=== PATIENT | female | born 1935 | race Caucasian/White ===

== ENCOUNTER → 2017-07-12 | Day surgery (SDC) | payer OTHER ==
--- NOTE | 2017-07-12 11:04 | RAD REPORT ---
EXAM DESCRIPTION: US - Breast Core BX w/US Guidance - 07/12/2017 10:39 am CLINICAL HISTORY: N63.0 COMPARISON: Mammogram and ultrasound studies July 09 TECHNIQUE: Patient presents for ultrasound-guided core biopsy of previously detailed 12 o'clock righ t breast mass. Patient had no contraindicated allergy or medication history. The procedure, risks and alternatives were discussed with the patient in detail. After answering all questions both oral and written consent were obtained. Time out procedure was performed. Preliminary imaging again identified large lobulated mass in the 12 o'clock right breast. The skin wa s prepped and draped in the usual sterile fashion. From a medial inferior approach the skin and deepe r tissues were anesthetized with 1% lidocaine. A 14 gauge vacuum assisted biopsy needle was advanced under direct sonographic guidance. Tip was placed at the medial inferior margin of the mass and a 2 c entimeter core biopsy was obtained. A second 2 centimeter core biopsy was obtained using the same acc ess site in a different area within the mass. All obtained material was given to pathology for histol ogy/cytology evaluation. Under direct sonographic guidance a localization clip was deployed along the medial inferior margin o f the mass. Patient tolerated the procedure well without complications. Hemostasis was obtained at the puncture s ite. No hematoma within the breast. A sterile bandage was placed to the puncture site and post proced ure care and precaution instructions were given to the patient. IMPRESSION: Successful ultrasound-guided biopsy of previously detailed right breast mass.
== END ==
LOC: DS 09:20
PROVIDERS: ATTEND Physician Assistant
DX: C50.911 Malignant neoplasm of unspecified site of right female breast (principal); Z17.1 Estrogen receptor negative status [ER-]
CPT/HCPCS: 19083; 88305

== ENCOUNTER 2017-07-29 05:45 | Day surgery (SDC) | payer OTHER ==
--- NOTE | 2017-07-27 14:11 | RAD REPORT ---
EXAM DESCRIPTION: RAD - Chest Pa And Lat (2 Views) - 07/27/2017 1:49 pm CLINICAL HISTORY: Breast mass COMPARISON: None. FINDINGS: Calcified granuloma is present in the right lower lobe anteriorly with calcified right per itracheal lymph nodes seen. The combination of findings likely represents previous granulomatous infe ction. The lungs are grossly clear. The heart is normal in size.
[2017-07-27 14:37] LABS: Absolute Lymphocytes (CBC) 2.6 K/uL (0.7-4.9); Absolute Monocytes 0.6 K/uL (0.1-1.3); Absolute Neutrophil 6.6 K/uL (1.8-8.0); Eosinophils % 3.1 % (0-4.4); Hematocrit 38.8 % (36.0-45.0); Lymphocytes % 25.6 % (15.3-44.8); MCH 27.5 pg (27.0-35.0); MPV 8.7 fL (7.6-11.3); Monocytes % 5.5 % (3.3-12.3); RBC Red Blood Cell Count 4.56 M/uL (3.86-4.86)
[2017-07-27 15:03] LABS: Potassium 4.3 mEq/L (3.6-5.0)
--- NOTE | 2017-07-27 15:26 | EKG ---
Test Date: 2017-07-27 Test Time: 13:22:20 Global Account Executive: NICHOLAS MEASUREMENT RESULTS: Intervals: Rate: 71 RI: 166 QRSD: 84 QT: 394 QTc: 428 Banner: P: -12 RI: 166 QRS: -6 T: 1 INTERPRETIVE STATEMENTS: Normal sinus rhythm Normal ECG Compared to ECG 10/27/2002 09:20:00 No significant changes Electronically Signed On 07-27-17 15:25:27 CDT by Sudeep Brody
[2017-07-27 15:44] LABS: ALT/SGPT 31 IU/L (10-60); AST/SGOT 51 IU/L (10-42); Albumin 4.6 g/dL (3.2-5.5); Alkaline Phosphatase 75 IU/L (42-121); BUN Blood Urea Nitrogen 21 mg/dL (6-20); Bilirubin Direct < 0.1 mg/dL (0-0.2); Bilirubin Total 0.5 mg/dL (0.3-1.2); Protein, Total 7.5 g/dL (6.0-8.3)
[2017-07-29] MEDS ORDERED: NA CHLORIDE 0.9% 1,000 ML ONE (06:10)
[2017-07-29] MEDS ORDERED: CEFAZOLIN/SWI 1gm 0 GM/0 ML SYR ONE (06:10)
[2017-07-29] MEDS ORDERED: BUPIVACA 0.25%/EPI 0.0005%/PF 30 ML VIAL ONE (08:04)
[2017-07-29] MEDS ORDERED: METHYLENE BLUE 0.5% 10 ML AMP ONE (08:04)
[2017-07-29] MEDS ORDERED: VANCOMYCIN/NS 1 gm 1 GM/250 ML BAG ONE (08:17)
[2017-07-29] MEDS ORDERED: PROPOFOL 200 MG/20 ML VIAL IV ONE (08:28)
[2017-07-29] MEDS ORDERED: MIDAZOLAM HCL 2 MG/2 ML INJ ONE (08:28)
[2017-07-29] MEDS ORDERED: LIDOCAINE 2% MPF 5 ML VIAL ONE (08:28)
[2017-07-29] MEDS ORDERED: FENTANYL CITR 250 MCG/5 ML ONE (08:28)
[2017-07-29] MEDS ORDERED: ROCURONIUM 50 MG/5 ML VIAL IV ONE (08:28)
[2017-07-29] MEDS ORDERED: SCOPOLAMINE HYDROBROMIDE PATCH TD ONE (08:32)
--- NOTE | 2017-07-29 09:03 | P.PN ---
Date of Service: 07/29/17 Patient had radioactive tracer injected over 1 hour ago and has no movement at all of tracer when imaged. Tried massage, no movement - will cancel case for today and reschedule for wednesday with peritumoral injection - i have discussed with patient whom agrees with the above plan
== END 2017-07-29 09:25 | disposition home or self-care (01) ==
LOC: OR 05:45
PROVIDERS: ATTEND Surgery
DX: C50.911 Malignant neoplasm of unspecified site of right female breast (principal); Z53.9 Procedure and treatment not carried out, unspecified reason
CPT/HCPCS: 36415; 71046; 80051; 80076; 82565; 82962; 84520; 85025; 93005; J3370; J7030; J0690; J2250

== ENCOUNTER 2017-08-02 06:44 | Day surgery (SDC) | payer OTHER ==
[2017-08-02] MEDS ORDERED: VANCOMYCIN/NS 1 gm 1 GM/250 ML BAG ONE (07:22)
[2017-08-02] MEDS ORDERED: NA CHLORIDE 0.9% 1,000 ML ONE (07:22)
[2017-08-02] MEDS ORDERED: PROPOFOL 200 MG/20 ML VIAL IV ONE (07:57)
[2017-08-02] MEDS ORDERED: LIDOCAINE 2% MPF 5 ML VIAL ONE (07:57)
[2017-08-02] MEDS ORDERED: MIDAZOLAM HCL 2 MG/2 ML INJ ONE (07:57)
[2017-08-02] MEDS ORDERED: FENTANYL CITR 100 MCG/2 ML ONE (07:58)
[2017-08-02] MEDS ORDERED: ROCURONIUM 50 MG/5 ML VIAL IV ONE (07:58)
[2017-08-02] MEDS ORDERED: SCOPOLAMINE HYDROBROMIDE PATCH TD ONE (08:36)
[2017-08-02] MEDS ORDERED: METHYLENE BLUE 0.5% 10 ML AMP ONE (08:38)
[2017-08-02] MEDS ORDERED: BUPIVACA 0.25%/EPI 0.0005%/PF 30 ML VIAL ONE (08:38)
--- NOTE | 2017-08-04 14:04 | P.OP ---
Preoperative diagnosis: Right Breast Cancer Postoperative diagnosis: Right Breast Cancer Primary procedure: Right Mastectomy with [place] Lymph Node Biopsy, Left simple mastectomy Anesthesia: GETA Estimated blood loss: <30cc Specimen: Right, Left Breast, Right [place] Lymph Node Findings: single sentinel lymph node Complications: None Drain(s): FLOWER drain (10 georgian round) Transferred to: Recovery Room Condition: Good
== END 2017-08-02 09:45 | disposition home or self-care (01) ==
LOC: OR 06:44
PROVIDERS: ATTEND Surgery
DX: C50.911 Malignant neoplasm of unspecified site of right female breast (principal); Z53.8 Procedure and treatment not carried out for other reasons
CPT/HCPCS: 82962; J3370; J7030; J2250; J3010

== ENCOUNTER 2017-08-04 06:42 | Day surgery (SDC) | payer OTHER ==
[2017-08-04] MEDS ORDERED: NA CHLORIDE 0.9% 1,000 ML ONE ×2 (07:31→12:58)
[2017-08-04] MEDS ORDERED: VANCOMYCIN 1 GM/250 ML BAG ONE (07:37)
[2017-08-04] MEDS ORDERED: SCOPOLAMINE HYDROBROMIDE PATCH TD ONE (07:48)
[2017-08-04] MEDS ORDERED: ROCURONIUM 50 MG/5 ML VIAL IV ONE (09:45)
[2017-08-04] MEDS ORDERED: FENTANYL CITR 250 MCG/5 ML ONE ×2 (09:45→12:43)
[2017-08-04] MEDS ORDERED: PROPOFOL 200 MG/20 ML VIAL IV ONE (09:45)
[2017-08-04] MEDS ORDERED: MIDAZOLAM HCL 2 MG/2 ML INJ ONE (09:45)
[2017-08-04] MEDS ORDERED: LIDOCAINE 1% MPF 2 ML AMPULE ONE (09:47)
--- NOTE | 2017-08-04 09:54 | RAD REPORT ---
EXAM DESCRIPTION: NM - Lymphoscintigraphy - 08/04/2017 9:34 am CLINICAL HISTORY: Right breast carcinoma. COMPARISON: None. FINDINGS: 0.1 millicuries technetium sulfur colloid was formulated in the each of 4 separate syringe s. Four intradermal injections were performed surrounding the area of mass lesion in the upper outer rig ht breast. IMPRESSION: Right breast lymphoscintigraphy injection as detailed.
[2017-08-04] MEDS ORDERED: BUPIVACAINE 0.5% Inj,MDV 50 mL VIAL ONE (10:08)
[2017-08-04] MEDS ORDERED: BUPIVACA 0.25%/EPI 0.0005%/PF 30 ML VIAL ONE (10:17)
[2017-08-04] MEDS ORDERED: ONDANSETRON HCL 40 MG/20 ML VIAL ONE (10:29)
[2017-08-04] MEDS: METHYLENE BLUE 0.5% 10 ML AMP ONE ×2 (10:52→11:11)
[2017-08-04] MEDS ORDERED: GLYCOPYRROLATE 0.2 MG/ML SYR ONE (12:52)
[2017-08-04] MEDS ORDERED: Ringers Lactate 1,000 ML IV ONE (13:17)
[2017-08-04] MEDS ORDERED: KETOROLAC 30 MG/ML INJ ONE (13:46)
[2017-08-04] MEDS ORDERED: PROMETHAZINE 25 MG/ML VIAL ONE (14:31)
--- NOTE | 2017-08-05 00:21 | OP ---
Date of Procedure: 08/04/2017 Surgeon: Farzad Murray MD, Preoperative Diagnosis: Right breast cancer. Postoperative Diagnosis: Right breast cancer. Procedure Performed: 1.Right mastectomy with sentinel lymph node biopsy. 2.Left simple mastectomy. Anesthesia: General endotracheal. Estimated Blood Loss: Less than 30 cc. Specimen: Right and left breast right sentinel lymph node. Findings: Single sentinel lymph node. The remainder of the background radiation was below 10%. Complication: None. Drains: [place] round FLOWER drain used bilaterally in the breast pockets. Disposition: Transferred to recovery room in good condition. Procedure In Detail: After informed consent was obtained, the patient was brought to the operating r oom and prepped and draped in the usual sterile fashion. After adequate anesthesia was achieved, I i njected methylene blue of approximately 7 cc in the peritumoral position of the right breast. This a alfonso was then massaged for approximately 5 minutes by staff to allow for drainage through the lymphati c system. After this was done, I used the [place] counter to detect the area of the axilla with the h ighest counts and marked this area. I then marked the breast at the inframammary crease clavicle mid line. I marked the axilla with respect to the latissimus dorsi and pectoralis major distributions as well. After this was done, I created a periareolar elliptical type incision of the right breast inc luding an additional margin on the superior aspect under the tumor to include the skin overlying the known infiltrating ductal carcinoma of the right breast. After this was taken down with a 15-blade d own to the subcutaneous tissues, I elevated skin flaps and entered the pectoral plane following the w sindhu line circumferentially to the clavicle superiorly, medially to the sternum, inferiorly to the in framammary crease, laterally to the inferior aspect of the latissimus dorsi. I then circumferentiall y dissected this all the way to the prepectoral fascia and removed it off the pectoralis major muscle . After this was removed, small aspect of the axillary tail was included and the orientation stitch was then placed short superior, long lateral, and the specimen was sent for pathologic examination fo r permanent analysis. I then used the [place] counter and checked the background radiation of the mary ast area and found that I had an isolated area of the right axilla. An axillary incision was then ma de after packing the chest with wet saline. I then continued in the axilla to dissect bluntly into t he axillary content space and found a single enlarged blue lymph node which had a hot counts of appro ximately almost 500. This was circumferentially dissected and medium clips were placed on the residu al lymphatic channel and this was ligated and sent off for pathologic examination. Counts ex vivo we re in the 500 range, in vivo were approximately in the 350-400 range. This was sent off for patholog ic examination. Touch prep analysis and pathologic examination determined that the lymph node was gr ossly normal at this time. I then irrigated the chest incision and the axillary incision copiously a nd dried the area out. Hemostasis of the chest was already achieved without any additional hemostati c maneuvers. I then placed a 10-[place] round FLOWER drain in the right mammary space and brought it out through a separate stab incision and secured this to the chest using a 2-0 nylon suture. I then proc eeded to close the mammary incision with the dermis down with an interrupted 3-0 Vicryl with good cordell roximation of tissues. The same was treated with the axillary incision with 3-0 Vicryl in interrupte d fashion. The skin was then closed with a 4-0 Monocryl in running fashion in both the mammary incis ion and the axilla. Dermabond was placed over the top. I then turned my attention after changing gl oves and instruments to the left breast. An elliptical periareolar incision was made at this time wi th 15 bands down to the subcutaneous tissues. Once again, skin flaps were elevated following the whi te line all the way to the prepectoral fascia, superior to the clavicle, medially to the sternum, and inferior to the 6th rib space at the inframammary crease. Laterally, it carried to the latissimus d orsi in the inferior aspect. I then continued the dissection out to include the axillary tail and th e breast was removed off the prepectoral fascia. Marking stitches were placed once again short super ior, long lateral, and the specimen was sent off for pathologic examination. Hemostasis was achieved with electrocautery. The chest cavity was then irrigated copiously and dried. No additional hemost atic maneuvers required. A 10-[place] round FLOWER drain was then placed once again in this through a sep arate stab incision on the lateral aspect of the incision and secured to the chest wall using a 2-0 s ilk stitch at this time. The subcutaneous layers were then closed with 3-0 Vicryl in interrupted fas hion and skin was closed with 4-0 Monocryl in a running fashion. Dermabond was placed over the top. The patient tolerated the procedure well without evidence of complication. Sterile dressings were p laced over the top and compression dressings were placed on the patient on the mammary and axillary a spect and an Bulmaro bandage was used to wrap circumferentially. The patient tolerated the procedure wel l without evidence of complication and transferred to the PACU in good condition. All counts were co rrect at the end of the case. BARBARA/CRISTO Voice ID: [id number] Report ID: [id number]
== END 2017-08-04 16:50 | disposition home or self-care (01) ==
LOC: OR 06:42
PROVIDERS: ATTEND Surgery
PROC: 0HTV0ZZ Resection of Bilateral Breast, Open Approach (ICD-10-PCS; principal; 2017-08-04 09:30)
PROC: 07B50ZX Excision of Right Axillary Lymphatic, Open Approach, Diagnostic (ICD-10-PCS; 2017-08-04 09:30)
DX: C50.911 Malignant neoplasm of unspecified site of right female breast (principal); E11.9 Type 2 diabetes mellitus without complications; I10 Essential (primary) hypertension; K21.9 Gastro-esophageal reflux disease without esophagitis; M19.90 Unspecified osteoarthritis, unspecified site; Z88.0 Allergy status to penicillin; Z88.2 Allergy status to sulfonamides; Z88.6 Allergy status to analgesic agent
CPT/HCPCS: 19303; 38500; 38900; 78195; 82962 ×2; 88307; A9541; J2001; J2250; J2405; J2550; J3370; J7030; 88305

== ENCOUNTER 2021-02-26 08:00 | Day surgery (SDC) | payer OTHER ==
[2021-02-26] MEDS ORDERED: NA CHLORIDE 0.9% 1,000 ML ONE (08:10)
[2021-02-26 08:37] LABS: MPV 7.6 fL (7.6-11.3)
[2021-02-26 08:43] LABS: Protime INR 1.02
[2021-02-26] MEDS ORDERED: MIDAZOLAM HCL 2 MG/2 ML INJ ONE (08:53)
[2021-02-26] MEDS ORDERED: FENTANYL CITR 100 MCG/2 ML ONE ×2 (08:54→08:55)
[2021-02-26] MEDS ORDERED: NALOXONE 0.4 MG/ML VIAL ONE (08:54)
[2021-02-26 10:14] VITALS: BMI 29.2
[2021-02-26 10:25] VITALS: BP 165/70; TEMP 98.3; O2SAT 96
--- NOTE | 2021-02-26 13:30 | RAD REPORT ---
EXAM DESCRIPTION: US - Breast Core BX w/US Guidance - 02/26/2021 9:59 am CLINICAL HISTORY: ICD R 92.8 COMPARISON: July 31, 2020 ultrasound TECHNIQUE: The risks, benefits alternatives to the procedure were explained to the patient and infor med consent obtained. Skin and subcutaneous tissues anesthetized with lidocaine. Under sonographic guidance, 4 x 18 gauge core specimens were obtained of the right-sided chest wall m ass identified on the recent chest CT. Tissue given to pathology. Note that nursing was present two provided conscious sedation. Versed and Fentanyl were administered. Patient experienced no immediate complication IMPRESSION: Technically successful ultrasound-guided core biopsy of a right chest wall mass. No imme diate complications. Conscious sedation was utilized .
== END 2021-02-26 10:03 | disposition home or self-care (01) ==
LOC: DS 08:00
PROVIDERS: ATTEND Internal Medicine Medical Oncology
DX: C50.911 Malignant neoplasm of unspecified site of right female breast (principal); C77.3 Secondary and unspecified malignant neoplasm of axilla and upper limb lymph nodes
CPT/HCPCS: 19083; 36415; 85049; 85610; 85730; 88305; J2250; J2310; J3010; J7030

== ENCOUNTER 2021-08-22 15:33 | Emergency (ER) | payer OTHER ==
--- OUTSIDE RECORDS SUMMARY | 2021-08-22 15:37 | XMS REPORT | Continuity of Care Document ---
:1935 Author Organization [facility] t Address [address] [place] [address] Care Team Providers Name Role Phone System, Not In Primary Care Physician JONNA Attending Clinician Unavailable Nathalie Lindsey MD Attending Clinician Emma Castillo MD Attending Clinician KWADWO Attending Clinician Unavailable EMMA CASTILLO Attending Clinician Unavailable EMMA CASTILLO Attending Clinician Unavailable MARIANELA MCKINNEY Attending Clinician Unavailable Kwadwo PASTOR Attending Clinician EMMA CASTILLO Admitting Clinician Unavailable Payers Payer Name Policy Type Policy Number Effective Date Expiration Date S marsiace MEDICARE A B [id number] 2002 00:00:00 [employer] INDEMNITY [id number] 2013 NON CONTR 00:00:00 MEDICARE PART A [id number] \\T\\ B - MEDICARE INDEMNITY/TRADITIO [id number] NAL CHOICE - [employer] Problems Condition Condition Condition Status Onset Resolution Last Treating Co mments Source Name Details Category Date Date Treatment Clinician Date 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 cancer cancer College (HCCode) (HCCode) of Medicin e Allergies, Adverse Reactions, Alerts Allergy Allergy Status Severity Reaction(s) Onset Inactive Treating Comm ents Source Name Type Date Date Clinician Milk-Rel Propensi Active Diarrhea Diarrhea; [facility] ated ty to 2- Stomach College Compound adverse 00:00: ache of s reaction 00 Medicin s to e drug MILK Allergy Active Med Di[facility] PRODUCTS 00 Center CODEINE Allergy Active Med 2021- [facility] SULFA Allergy Active Med Itching [facility] (SULFONA [facility] 00:[facility] Medical ANTIBIOT 00 Center ICS) PENICILL Allergy Active [facility] Codeine Propensi Active Rash [facility] ty to 1-12 [place] adverse 00:00: of reaction 00 Medicin s to e drug Penicill Propensi Active RESP [facility] ins ty to 12 [place] adverse 00:00: of reaction 00 Medicin s to e drug Sulfa Propensi Active GI [facility] Antibiot ty to 12 [place] ics adverse 00:00: of reaction 00 Medicin s to e drug PENICILL Allergy Active High Hives [facility] SULFA Allergy Active High Itching [facility]SULFONA [facility] Medical ANTIBIOT 00 Center ICS) CODEINE Allergy Active High Hives [facility] Social History Social Habit Start Date Stop Date Quantity Comments Source History [facility] Alcohol Std Drinks of Med icine History [facility] Alcohol Binge of Medicine History [facility] Alcohol Comment of Medici ne Alcohol intake 2021-06-09 2021-06-[address] [facility] Col lege 00:00:00 00:00:00 non-drinker of Medicine (finding) Exposure to 2021-04-20 2021-05-20 Not sure [facility] e SARS-CoV-2 (event) 00:00:00 15:43:00 of Med icine History [facility] 2021-03-26 2021-03-[address] [facility] ge Alcohol Frequency 00:00:00 00:00:00 of Medi cine Tobacco use and 2021-03-26 2021-03-26 Smokeless tobacco [facility] exposure 00:00:00 00:00:00 non-user of Medicine Sex Assigned At [address] [facility] 00:00:00 00:00:00 of Medicine Smoking Status Start Date Stop Date Source Never smoked tobacco [facility] Teresa ege of Medicine Medications Ordered Filled Start Stop Current Ordering Indication Dosage Frequency Signature Comments Components Source Medication Medication Date Date Medication? Clinician (SIG) Name Name esomeprazol Yes 20mg Take [address] [facility] e (NEXIUM) 05-21 by mouth Colle ge 20 MG 14:41: daily. of capsule 43 Medicin e metoprolol Yes 25mg Take 25 mg [facility] (TOPROL-XL) - by mouth Teresa ege 25 MG XL 14:41: two times of tablet 43 daily. Medicin e Azelastine Yes 1{spray [address] [facility] HCl 137 05-21 } [facility] MCG/SPRAY 14:41: Nostrils of SOLN 43 route two Medicin times e daily. fenofibrate Yes 145mg Take 145 [facility] (TRICOR) 05-21 mg by [place] 145 MG 14:41: mouth of tablet 43 daily. Medicin e LOSARTAN Yes 25mg Take 25 mg [facility] P[facility]ASSIUM 05-[facility] 14:41: daily. of 43 Medicin e Multiple Yes Take by Henrysudhir r Vitamins-Mi 05-21 mouth [place] nerals 14:41: daily. of (WOMENS 43 Medicin MULTI e VITAMIN & MINERAL OR) FLUTICASONE Yes 1{spray [address] [facility] PROPIONATE 05-21 } [facility] NA 14:41: Nostrils of 43 route 2 Medicin times e daily as needed. Ferrous Yes 65mg Take 65 mg [facility] Sulfate 05-21 by [facility] (IRON OR) 14:41: daily. of 43 Medicin e Cholecalcif Yes Take by Josias suarez abigail 05-21 mouth [place] (VITAMIN 14:41: daily. of D3) 125 MCG 43 Medicin (5000 UT) e CAPS esomeprazol Yes 20mg Take [address] [facility] e (NEXIUM) - by mouth Colle ge 20 MG 14:41: daily. of capsule 43 Medicin e metoprolol Yes 25mg Take 25 mg [facility] (TOPROL-XL) 3-09 by mouth Teresa ege 25 MG XL 14:41: two times of tablet 43 daily. Medicin e Azelastine Yes 1{spray [address] [facility] HCl 137 05-21 } [facility] MCG/SPRAY 14:41: Nostrils of SOLN 43 route two Medicin times e daily. fenofibrate Yes 145mg Take 145 [facility] (TRICOR) 3-09 mg by [place] 145 MG 14:41: mouth of tablet 43 daily. Medicin e LOSARTAN Yes 25mg Take 25 mg [facility] POTASSIUM 05-21 by mouth Colleg e OR 14:41: daily. of 43 Medicin e Multiple Yes Take by Henrysudhir r Vitamins-Mi 05-21 mouth [place] nerals 14:41: daily. of (WOMENS 43 Medicin MULTI e VITAMIN & MINERAL OR) FLUTICASONE Yes 1{spray [address] [facility] PROPIONATE 05-21 } [facility] NA 14:41: Nostrils of 43 route 2 Medicin times e daily as needed. Ferrous Yes 65mg Take 65 mg [facility] Sulfate 05-21 by mouth [place] (IRON OR) 14:41: daily. of 43 Medicin e Cholecalcif Yes Take by Josias suarez abigail 05-21 mouth [place] (VITAMIN 14:41: daily. of D3) 125 MCG 43 Medicin (5000 UT) e CAPS esomeprazol Yes 20mg Take [address] [facility] e (NEXIUM) 05-21 by mouth Colle ge 20 MG 14:41: daily. of capsule 43 Medicin e metoprolol Yes 25mg Take 25 mg [facility] (TOPROL-XL) -09 by mouth Teresa ege 25 MG XL 14:41: two times of tablet 43 daily. Medicin e Azelastine Yes 1{spray [address] [facility] HCl 137 05-21 } [facility] MCG/SPRAY 14:41: Nostrils of SOLN 43 route two Medicin times e daily. fenofibrate Yes 145mg Take 145 [facility] (TRICOR) 3-09 mg by [place] 145 MG 14:41: mouth of tablet 43 daily. Medicin e LOSARTAN Yes 25mg Take 25 mg [facility] POTASSIUM -09 by mouth Colleg e OR 14:41: daily. of 43 Medicin e Multiple Yes Take by Henrylo r Vitamins-Mi 3- mouth [place] nerals 14:41: daily. of (WOMENS 43 Medicin MULTI e VITAMIN & MINERAL OR) FLUTICASONE Yes 1{spray [address] [facility] PROPIONATE 05-21 } [facility] NA 14:41: Nostrils of 43 route 2 Medicin times e daily as needed. Ferrous Yes 65mg Take 65 mg [facility] Sulfate 05-21 by mouth [place] (IRON OR) 14:41: daily. of 43 Medicin e Cholecalcif Yes Take by Ba daniela abigail 05-21 mouth [place] (VITAMIN 14:41: daily. of D3) 125 MCG 43 Medicin (5000 UT) e CAPS esomeprazol Yes 20mg Take [address] [facility] e (NEXIUM) 05-21 by mouth Colle ge 20 MG 14:41: daily. of capsule 43 Medicin e metoprolol Yes 25mg Take 25 mg [facility] (TOPROL-XL) 309 by mouth Teresa ege 25 MG XL 14:41: two times of tablet 43 daily. Medicin e Azelastine Yes 1{spray [address] [facility] HCl 137 05-21 } [facility] MCG/SPRAY 14:41: Nostrils of SOLN 43 route two Medicin times e daily. fenofibrate Yes 145mg Take 145 [facility] (TRICOR) -09 mg by [place] 145 MG 14:41: mouth of tablet 43 daily. Medicin e LOSARTAN Yes 25mg Take 25 mg [facility] POTASSIUM 05-21 by mouth Colleg e OR 14:41: daily. of 43 Medicin e Multiple Yes Take by Henrylo r Vitamins-Mi 3- mouth [place] nerals 14:41: daily. of (WOMENS 43 Medicin MULTI e VITAMIN & MINERAL OR) FLUTICASONE Yes 1{spray [address] [facility] PROPIONATE 3 } [facility] NA 14:41: Nostrils of 43 route 2 Medicin times e daily as needed. Ferrous Yes 65mg Take 65 mg [facility] Sulfate 05-21 by [facility] (IRON OR) 14:41: daily. of 43 Medicin e Cholecalcif Yes Take by Josias hayes 05-21 [facility] (VITAMIN 14:41: daily. of D3) 125 MCG 43 Medicin (5000 UT) e CAPS Multiple 2021- No 1{tbl} Take 1 [facility] Vitamin 05-21 Tablet by Colleg e (MULTI-JOSE 12:14: 00:00 mouth of MIN) TABS 30 :00 daily. Medicin e Multiple 2021- No 1{tbl} Take 1 [facility] Vitamin 05-21 Tablet by Colleg e (MULTI-JOSE 12:14: 00:00 mouth of MIN) TABS 30 :00 daily. Medicin e Ferrous 2021- No Take by [facility] r Sulfate 05-21 [facility] Dried (HIGH 12:12: 00:00 daily. of POTENCY 53 :00 Medicin IRON) 65 MG e TABS Ferrous 2021- No Take by Henrylo r Sulfate 05-21 [facility] Dried (HIGH 12:12: 00:00 daily. of POTENCY 53 :00 Medicin IRON) 65 MG e TABS ferrous 2021- No 325mg Take 325 [facility] sulfate 325 05-21- mg by Colleg e (65 Fe) MG 12:12: 00:00 mouth. of tablet 50 :00 Medicin e ferrous 2021- No 325mg Take 325 [facility] sulfate 325 05-21-09 mg by Colleg e (65 Fe) MG 12:12: 00:00 mouth. of tablet 50 :00 Medicin e acetaminoph 2021- No 500mg Take 500 [facility] en 2-27 03-10 mg by [place] (TYLENOL) 00:00: 05:59 mouth of 500 mg 00 :00 every 6 Medicin tablet hours as e needed for Pain. acetaminoph 2021- No 500mg Take [address] [facility] en 2-27 03-10 mg by [place] (TYLENOL) 00:00: 05:59 mouth of 500 mg 00 :00 every 6 Medicin tablet hours as e needed for Pain. acetaminoph 2021- No 500mg Take 500 [facility] en 2-27 03-10 mg by College (TYLENOL) 00:00: 05:59 mouth of 500 mg 00 :00 every 6 Medicin tablet hours as e needed for Pain. acetaminoph 2021- No 500mg Take 500 [facility] en 2-27 03-10 mg by College (TYLENOL) 00:00: 05:59 mouth of 500 mg 00 :00 every 6 Medicin tablet hours as e needed for Pain. losartan 2021- No TAKE 1 [facility] (COZAAR) 25 2-16 03-04 TABLET BY Co llege MG tablet 00:00: 00:00 MOUTH of 00 :00 EVERY DAY Medicin FOR 90 e DAYS Azelastine [address] [facility] HCl 137 1-12 College MCG/SPRAY 14:55: of SOLN 48 Medicin e fenofibrate Yes 145mg Take 145 [facility] (TRICOR) 1-12 mg by College 145 MG 14:55: mouth of tablet 48 daily. Medicin e Ferrous 0 Yes [facility] Sulfate 1-12 [facility] Dried (HIGH 14:55: of POTENCY 48 Medicin IRON) 65 MG e TABS LOSARTAN 0 Yes 25mg Take 25 mg [facility] POTASSIUM 1-12 by mouth Colleg e OR 14:55: daily. of 48 Medicin e Multiple Yes [facility] Vitamins-Mi 1-12 [place] nerals 14:55: of (WOMENS 48 Medicin MULTI e VITAMIN & MINERAL OR) Azelastine [address] [facility] HCl 137 1-12 College MCG/SPRAY 14:55: of SOLN 48 Medicin e fenofibrate Yes 145mg Take 145 [facility] (TRICOR) 1-12 mg by College 145 MG 14:55: mouth of tablet 48 daily. Medicin e Ferrous [address] [facility] Sulfate 1-12 [facility] Dried (HIGH 14:55: of POTENCY 48 Medicin IRON) 65 MG e TABS LOSARTAN 0 Yes 25mg Take 25 mg [facility] POTASSIUM 1-12 by mouth Colleg e OR 14:55: daily. of 48 Medicin e Multiple 2021-0 Yes [facility] Vitamins-Mi 1-12 College nerals 14:55: of (WOMENS 48 Medicin MULTI e VITAMIN & MINERAL OR) FLUTICASONE 2021-0 Yes by Nasal [facility] PROPIONATE 1-12 route. [place] NA 14:55: of 48 Medicin e Ferrous 0 Yes 65mg Take 65 mg [facility] Sulfate -12 by mouth [place] (IRON OR) 14:55: daily. of 48 Medicin e Cholecalcif 0 Yes Take by Ba ylor abigail 1-12 mouth. [place] (VITAMIN 14:55: of D3) 125 MCG 48 Medicin (5000 UT) e CAPS Azelastine 0 Yes [facility] HCl 137 1-12 [place] MCG/SPRAY 14:55: of SOLN 48 Medicin e fenofibrate Yes 145mg Take 145 [facility] (TRICOR) 1-12 mg by [place] 145 MG 14:55: mouth of tablet 48 daily. Medicin e Ferrous [address] [facility] Sulfate -12 [place] Dried (HIGH 14:55: of POTENCY 48 Medicin IRON) 65 MG e TABS LOSARTAN Yes 25mg Take 25 mg [facility] alexei POTASSIUM -12 [facility] 14:55: daily. of 48 [address] [facility] Vitamins-Mi 1-12 [place] nerals 14:55: of (WOMENS 48 Medicin MULTI e VITAMIN & MINERAL OR) FLUTICASONE 0 Yes by Nasal [facility] PROPIONATE -12 route. [place] NA 14:55: of 48 Medicin e Ferrous 0 Yes 65mg Take 65 mg [facility] Sulfate 12 by mouth [place] (IRON OR) 14:55: daily. of 48 Medicin e Cholecalcif 0 Yes Take by [facility] abigail 1-12 mouth. [place] (VITAMIN 14:55: of D3) 125 MCG 48 Medicin (5000 UT) e CAPS gabapentin 2020-03 Yes 300mg Take 300 [facility] (NEURONTIN) 2-22 mg by [place] 300 MG 00:00: mouth two of capsule 00 times Medicin daily. e metformin 2020-03 Yes 850mg Take 850 [facility] (GLUCOPHAGE 2-22 mg by [place] ) 850 MG 00:00: mouth two of tablet 00 times Medicin daily. e gabapentin 2020-03 Yes 300mg Take 300 [facility] (NEURONTIN) 2-22 mg by [place] 300 MG 00:00: mouth two of capsule 00 times Medicin daily. e metformin 2020-03 Yes 850mg Take 850 [facility] (GLUCOPHAGE 2-22 mg by College ) 850 MG 00:00: mouth two of tablet 00 times Medicin daily. e gabapentin 2020-03 Yes 300mg Take 300 [facility] (NEURONTIN) 2-22 mg by [place] 300 MG 00:00: mouth two of capsule 00 times Medicin daily. e metformin 2020-03 Yes 850mg Take 850 [facility] (GLUCOPHAGE 2-22 mg by College ) 850 MG 00:00: mouth two of tablet 00 times Medicin daily. e gabapentin 2020-03 Yes 300mg Take 300 [facility] (NEURONTIN) 2-22 mg by [place] 300 MG 00:00: mouth two of capsule 00 times Medicin daily. e metformin 2020-03 Yes 850mg Take 850 [facility] (GLUCOPHAGE 2-22 mg by [place] ) 850 MG 00:00: mouth two of tablet 00 times Medicin daily. e gabapentin 2020-03 Yes [facility] (NEURONTIN) 2-22 College 300 MG 00:00: of capsule 00 Medicin e metformin 2020-03 Yes 850mg Take 850 [facility] (GLUCOPHAGE 2-22 mg by [place] ) 850 MG 00:00: mouth of tablet 00 daily. Medicin e gabapentin 2020-[address] [facility] (NEURONTIN) 2-22 College 300 MG 00:00: of capsule 00 Medicin e metformin 2020-03 Yes 850mg Take 850 [facility] a[facility] (GLUCOPHAGE 2-22 mg by [place] ) 850 MG 00:00: mouth of tablet 00 daily. Medicin e metoprolol 2020-[address] [facility] (LOPRESSOR) 2-22 College 25 MG 00:00: of tablet 00 Medicin e gabapentin 2020-[address] [facility] (NEURONTIN) 2-22 College 300 MG 00:00: of capsule 00 Medicin e metformin 2020-03 Yes 850mg Take 850 [facility] (GLUCOPHAGE 2-22 mg by [place] ) 850 MG 00:00: mouth of tablet 00 daily. Medicin e metoprolol 2020-03- No Take by [facility] (LOPRESSOR) 2-22 03-04 mouth two Co llege 25 MG 00:00: 00:00 times of tablet 00 :00 daily. Medicin e glipiZIDE 2020-03 Yes 10mg 10 mg two [facility] (GLUCOTROL) 2-20 times College 10 MG 00:00: daily. of tablet 00 Medicin e glipiZIDE 2020-03 Yes 10mg 10 mg two [facility] (GLUCOTROL) 2-20 times College 10 MG 00:00: daily. of tablet 00 Medicin e glipiZIDE 2020-03 Yes 10mg 10 mg two [facility] (GLUCOTROL) 2-20 times College 10 MG 00:00: daily. of tablet 00 Medicin e glipiZIDE 2020-03 Yes 10mg 10 mg two [facility] (GLUCOTROL) 2-20 times College 10 MG 00:00: daily. of tablet 00 Medicin e glipiZIDE 2020-[address] [facility] (GLUCOTROL) 2-20 College 10 MG 00:00: of tablet 00 Medicin e glipiZIDE 2020-[address] [facility] (GLUCOTROL) 2-20 College 10 MG 00:00: of tablet 00 Medicin e glipiZIDE 2020-[address] [facility] (GLUCOTROL) 2-20 College 10 MG 00:00: of tablet 00 Medicin e levothyroxi 2020-03 Yes Take by Josias calero 2-19 mouth [place] (SYNTHROID) 00:00: daily. of 25 MCG 00 Medicin tablet e rosuvastati 2020-03 Yes Take by Josias gold (CRESTOR) 2-19 mouth [place] 40 MG 00:00: daily. of tablet 00 Medicin e levothyroxi 2020-03 Yes Take by Josias calero 2-19 [facility] (SYNTHROID) 00:00: daily. of 25 MCG 00 Medicin tablet e rosuvastati 2020-03 Yes Take by Josias gold (CRESTOR) 2-19 mouth [place] 40 MG 00:00: daily. of tablet 00 Medicin e levothyroxi 2020-03 Yes Take by Josias calero 2-19 [facility] (SYNTHROID) 00:00: daily. of 25 MCG 00 Medicin tablet e rosuvastati 2020-03 Yes Take by Josias gold (CRESTOR) 2-19 mouth College 40 MG 00:00: daily. of tablet 00 Medicin e levothyroxi 2020-03 Yes Take by Josias calero 2-19 mouth College (SYNTHROID) 00:00: daily. of 25 MCG 00 Medicin tablet e rosuvastati 2020-03 Yes Take by Josias gold (CRESTOR) 2-19 mouth College 40 MG 00:00: daily. of tablet 00 Medicin e levothyroxi 2020-03 Yes [facility] 2-19 College (SYNTHROID) 00:00: of 25 MCG 00 Medicin tablet e rosuvastati 2020-[address] [facility] asif (CRESTOR) 2-19 [place] 40 MG 00:00: of tablet 00 Medicin e levothyroxi 2020-03 Yes [facility] 2-19 College (SYNTHROID) 00:00: of 25 MCG 00 Medicin tablet e rosuvastati 2020-[address] [facility] asif (CRESTOR) 2-19 [place] 40 MG 00:00: of tablet 00 Medicin e losartan 2020-[address] [facility] (COZAAR) 25 2-19 College MG tablet 00:00: of 00 Medicin e levothyroxi 2020-03 Yes [facility] 2-19 [place] (SYNTHROID) 00:00: of 25 MCG 00 Medicin tablet e rosuvastati 2020-[address] [facility] asif (CRESTOR) 2-19 [place] 40 MG 00:00: of tablet 00 Medicin e Vital Signs Vital Name Observation Time Observation Value Comments Source Systolic blood 2021-05-21 20:40:00 176 mm[Hg] [facility] pressure of Medicine Diastolic blood 2021-05-21 20:40:00 73 mm[Hg] [facility] pressure of Medicine Heart rate 2021-05-21 20:40:00 84 /min [facility] Body height 2021-05-21 20:40:00 157.5 cm [facility] Body weight 2021-05-21 20:40:00 72.122 kg [facility] BMI 2021-05-21 20:40:00 29.08 kg/m2 [facility] Systolic blood 2021-05-21 18:58:00 177 mm[Hg] notified [facility] pressure of Medicine Diastolic blood 2021-05-21 18:58:00 70 mm[Hg] notified [facility] pressure of Medicine Heart rate 2021-05-21 18:58:00 80 /min pulse ox 97% [facility] Body temperature 2021-05-21 18:58:00 36.44 [facility] Respiratory rate 2021-05-21 18:58:00 20 /min [facility] Body height 2021-05-21 18:58:[address] [facility] Body weight 2021-05-21 18:58:[address] [facility] BMI 2021-05-21 18:58:00 29.12 kg/m2 [facility] Systolic blood 2021-05-21 17:16:00 167 mm[Hg] [facility] pressure of Medicine Diastolic blood 2021-05-21 17:16:00 77 mm[Hg] [facility] pressure of Medicine Heart rate 2021-05-21 17:16:00 80 /min [facility] ollege of Medicine Body temperature 2021-05-21 17:16:00 36.89 [facility] Body height 2021-05-21 17:16:[address] [facility] Body weight 2021-05-21 17:16:00 72.122 kg [facility] ollege of Medicine BMI 2021-05-21 17:16:00 29.08 kg/m2 [facility] Systolic blood 2021-05-16 14:23:00 179 mm[Hg] [facility] pressure of Medicine Diastolic blood 2021-05-16 14:23:00 72 mm[Hg] [facility] pressure of Medicine Heart rate 2021-05-16 14:23:00 79 /min [facility] Body height 2021-05-16 14:23:[address] [facility] Body weight 2021-05-16 14:23:[address] [facility] BMI 2021-05-16 14:23:00 29.26 kg/m2 [facility] HEIGHT 2021-05-08 08:29:00 157.5 cm WEIGHT 2021-05-08 08:29:00 72.5 kg HEIGHT 2021-05-07 11:51:00 157.5 cm WEIGHT 2021-05-07 11:51:00 72.576 kg HEIGHT 2021-05-08 08:29:00 157.5 cm WEIGHT 2021-05-08 08:29:00 72.5 kg HEIGHT 2021-05-07 11:51:00 157.5 cm WEIGHT 2021-05-07 11:51:00 72.576 kg Systolic blood 2021-03-26 16:52:00 170 mm[Hg] [facility] pressure of Medicine Diastolic blood 2021-03-26 16:52:00 56 mm[Hg] [facility] pressure of Medicine Heart rate 2021-03-26 16:52:00 81 /min [facility] Body temperature 2021-03-26 16:52:00 37.11 [facility] Body height 2021-03-26 16:52:[address] [facility] Body weight 2021-03-26 16:52:[address] [facility] BMI 2021-03-26 16:52:00 29.26 kg/m2 [facility] Body weight 2021-03-26 19:21:[address] [facility] BMI 2021-03-26 19:21:00 29.26 kg/m2 [facility] Systolic blood 2021-03-26 19:21:00 157 mm[Hg] [facility] College pressure of Medicine Diastolic blood 2021-03-26 19:21:00 70 mm[Hg] [facility] pressure of Medicine Body temperature 2021-03-26 19:21:00 37.11 [facility] Body height 2021-03-26 19:21:[address] [facility] Systolic blood 2021-03-26 20:54:00 162 mm[Hg] [facility] College pressure of Medicine Diastolic blood 2021-03-26 20:54:00 79 mm[Hg] [facility] pressure of Medicine Heart rate 2021-03-26 20:54:00 82 /min [facility] Body height 2021-03-26 20:54:00 157.5 cm [facility] Body weight 2021-03-26 20:54:00 72.576 kg [facility] BMI 2021-03-26 20:54:00 29.26 kg/m2 [facility] Procedures This patient has no known procedures. Plan of Care Planned Activity Planned Date Details Comments Source Future Scheduled 2021-06-10 COVID-19 Vaccine (1) [facility] Test 12:09:07 [code = COVID-19 of Medicine Vaccine (1)] Future Scheduled 2021-06-10 TETANUS SHOT (ADULT) [facility] Test 12:09:07 [code = TETANUS SHOT of Medi cine (ADULT)] Future Scheduled 2021-06-10 BMI FOLLOW UP PLAN [facility] r College Test 12:09:07 [code = BMI FOLLOW of Medici ne UP PLAN] Future Scheduled 2021-06-10 ZOSTER VACCINE (1 of [facility] Test 12:09:07 2) [code = ZOSTER of Medicin e VACCINE (1 of 2)] Future Scheduled 2021-06-[address] [facility] Test 12:09:07 (Initial) [code = of Medicin e MEDICARE AWV (Initial)] Future Scheduled 2021-06-[address] [facility] Test 12:09:07 osteoporosis of Medicine (procedure) [code = 967212733] Future Scheduled 2021-06-10 Pneumococcal 65+ (1 [facility] Test 12:09:07 of 1 - PPSV23) [code of Medi cine = Pneumococcal 65+ (1 of 1 - PPSV23)] Future Scheduled 2021-06-10 FLU VACCINE > 6 [facility] C [facility] Test 12:09:07 MONTHS [code = FLU of Medici ne VACCINE > 6 MONTHS] Future Scheduled 2021-06-10 FALL SCREEN [code = [facility] Test 12:09:07 FALL SCREEN] of Medicine Future Scheduled 2021-06-01 COVID-19 Vaccine (1) [facility] Test 16:05:59 [code = COVID-19 of Medicine Vaccine (1)] Future Scheduled 2021-06-01 TETANUS SHOT (ADULT) [facility] Test 16:05:59 [code = TETANUS SHOT of Medi cine (ADULT)] Future Scheduled 2021-06-01 BMI FOLLOW UP PLAN [facility] Test 16:05:59 [code = BMI FOLLOW of Medici ne UP PLAN] Future Scheduled 2021-06-01 ZOSTER VACCINE (1 of [facility] Test 16:05:59 2) [code = ZOSTER of Medicin e VACCINE (1 of 2)] Future Scheduled 2021-06-[address] [facility] Test 16:05:59 (Initial) [code = of Medicin e MEDICARE AWV (Initial)] Future Scheduled 2021-06-01 Screening for [facility] Test 16:05:59 osteoporosis of Medicine (procedure) [code = [id number]] Future Scheduled 2021-06-01 Pneumococcal 65+ (1 [facility] Test 16:05:59 of 1 - PPSV23) [code of Medi cine = Pneumococcal 65+ (1 of 1 - PPSV23)] Future Scheduled 2021-06-01 FLU VACCINE > 6 [facility] C [facility] Test 16:05:59 MONTHS [code = FLU of Medici ne VACCINE > 6 MONTHS] Future Scheduled 2021-06-01 FALL SCREEN [code = [facility] Test 16:05:59 FALL SCREEN] of Medicine Future Scheduled 2021-05-28 COVID-19 Vaccine (1) [employer] 14:56:56 [code = COVID-19 of Medicine Vaccine (1)] Future Scheduled 2021-05-28 TETANUS SHOT (ADULT) [employer] 14:56:56 [code = TETANUS SHOT of Medi cine (ADULT)] Future Scheduled 2021-05-28 BMI FOLLOW UP PLAN [employer] [facility] 14:56:56 [code = BMI FOLLOW of Medici ne UP PLAN] Future Scheduled 2021-05-28 ZOSTER VACCINE (1 of [employer] 14:56:56 2) [code = ZOSTER of Medicin e VACCINE (1 of 2)] Future Scheduled 2021-05-28 MEDICARE AWV [facility] 14:56:56 (Initial) [code = of Medicin e MEDICARE AWV (Initial)] Future Scheduled 2021-05-[address] [facility] Test 14:56:56 osteoporosis of Medicine (procedure) [code = 745125602] Future Scheduled 2021-05-28 Pneumococcal 65+ (1 [employer] 14:56:56 of 1 - PPSV23) [code of Medi cine = Pneumococcal 65+ (1 of 1 - PPSV23)] Future Scheduled 2021-05-28 FLU VACCINE > 6 [facility] [employer] [facility] 14:56:56 MONTHS [code = FLU of Medici ne VACCINE > 6 MONTHS] Future Scheduled 2021-05-28 FALL SCREEN [code = [employer] 14:56:56 FALL SCREEN] of Medicine Future Scheduled 2021-05-24 COVID-19 Vaccine (1) [employer] 17:38:04 [code = COVID-19 of Medicine Vaccine (1)] Future Scheduled 2021-05-24 TETANUS SHOT (ADULT) [employer] 17:38:04 [code = TETANUS SHOT of Medi cine (ADULT)] Future Scheduled 2021-05-24 BMI FOLLOW UP PLAN [employer] 17:38:04 [code = BMI FOLLOW of Medici ne UP PLAN] Future Scheduled 2021-05-24 ZOSTER VACCINE (1 of [employer] 17:38:04 2) [code = ZOSTER of Medicin e VACCINE (1 of 2)] Future Scheduled 2021-05-[address] [facility] Test 17:38:04 (Initial) [code = of Medicin e MEDICARE AWV (Initial)] Future Scheduled 2021-05-[address] [facility] Test 17:38:04 osteoporosis of Medicine (procedure) [code = 510645682] Future Scheduled 2021-05-24 Pneumococcal 65+ (1 [employer] 17:38:04 of 1 - PPSV23) [code of Medi cine = Pneumococcal 65+ (1 of 1 - PPSV23)] Future Scheduled 2021-05-24 FLU VACCINE > 6 [employer] 17:38:04 MONTHS [code = FLU of Medici ne VACCINE > 6 MONTHS] Future Scheduled 2021-05-24 FALL SCREEN [code = [employer] 17:38:04 FALL SCREEN] of Medicine Future Scheduled 2021-04-14 COVID-19 Vaccine (1) [employer] 11:44:15 [code = COVID-19 of Medicine Vaccine (1)] Future Scheduled 2021-04-14 TETANUS SHOT (ADULT) [employer] 11:44:15 [code = TETANUS SHOT of Medi cine (ADULT)] Future Scheduled 2021-04-14 BMI FOLLOW UP PLAN [employer] 11:44:15 [code = BMI FOLLOW of Medici ne UP PLAN] Future Scheduled 2021-04-14 ZOSTER VACCINE (1 of [employer] 11:44:15 2) [code = ZOSTER of Medicin e VACCINE (1 of 2)] Future Scheduled 2021-04-14 MEDICARE AWV [facility] [employer] [facility] 11:44:15 (Initial) [code = of Medicin e MEDICARE AWV (Initial)] Future Scheduled 2021-04-14 Screening for [facility] [employer] [facility] 11:44:15 osteoporosis of Medicine (procedure) [code = [id number]] Future Scheduled 2021-04-14 Pneumococcal 65+ (1 [employer] 11:44:15 of 1 - PPSV23) [code of Medi cine = Pneumococcal 65+ (1 of 1 - PPSV23)] Future Scheduled 2021-04-14 FLU VACCINE > 6 [employer] 11:44:15 MONTHS [code = FLU of Medici ne VACCINE > 6 MONTHS] Future Scheduled 2021-04-14 FALL SCREEN [code = [employer] 11:44:15 FALL SCREEN] of Medicine Future Scheduled 2021-04-13 COVID-19 Vaccine (1) [employer] 08:21:52 [code = COVID-19 of Medicine Vaccine (1)] Future Scheduled 2021-04-13 TETANUS SHOT (ADULT) [employer] 08:21:52 [code = TETANUS SHOT of Medi cine (ADULT)] Future Scheduled 2021-04-13 BMI FOLLOW UP PLAN [employer] 08:21:52 [code = BMI FOLLOW of Medici ne UP PLAN] Future Scheduled 2021-04-13 ZOSTER VACCINE (1 of [employer] 08:21:52 2) [code = ZOSTER of Medicin e VACCINE (1 of 2)] Future Scheduled 2021-04-13 MEDICARE AWV Antonio [facility] 08:21:52 (Initial) [code = of Medicin e MEDICARE AWV (Initial)] Future Scheduled 2021-04-13 Screening for [facility] [employer] [facility] 08:21:52 osteoporosis of Medicine (procedure) [code = [id number]] Future Scheduled 2021-04-13 Pneumococcal 65+ (1 [employer] 08:21:52 of 1 - PPSV23) [code of Medi cine = Pneumococcal 65+ (1 of 1 - PPSV23)] Future Scheduled 2021-04-13 FLU VACCINE > 6 [facility] [employer] 08:21:52 MONTHS [code = FLU of Medici ne VACCINE > 6 MONTHS] Future Scheduled 2021-04-13 FALL SCREEN [code = [employer] 08:21:52 FALL SCREEN] of Medicine Future Scheduled 2021-03-31 COVID-19 Vaccine (1) [employer] 13:28:15 [code = COVID-19 of Medicine Vaccine (1)] Future Scheduled 2021-03-31 TETANUS SHOT (ADULT) [employer] 13:28:15 [code = TETANUS SHOT of Medi cine (ADULT)] Future Scheduled 2021-03-31 BMI FOLLOW UP PLAN [employer] 13:28:15 [code = BMI FOLLOW of Medici ne UP PLAN] Future Scheduled 2021-03-31 ZOSTER VACCINE (1 of [employer] 13:28:15 2) [code = ZOSTER of Medicin e VACCINE (1 of 2)] Future Scheduled 2021-03-[address] [facility] Test 13:28:15 (Initial) [code = of Medicin e MEDICARE AWV (Initial)] Future Scheduled 2021-03-[address] [facility] Test 13:28:15 osteoporosis of Medicine (procedure) [code = [id number]] Future Scheduled 2021-03-31 Pneumococcal 65+ (1 [employer] 13:28:15 of 1 - PPSV23) [code of Medi cine = Pneumococcal 65+ (1 of 1 - PPSV23)] Future Scheduled 2021-03-31 FLU VACCINE > 6 [facility] Test 13:28:15 MONTHS [code = FLU of Medici ne VACCINE > 6 MONTHS] Future Scheduled 2021-03-31 FALL SCREEN [code = [employer] 13:28:15 FALL SCREEN] of Medicine Future Scheduled 2021-03-26 CT CHEST W CONTRAST 1 Occurrences [employer] 12:06:43 [code = 72414-6] starting of Medicine 03/26/2021 until 03/26/2022 Future Scheduled 2021-03-26 MRI CHEST W WO 1 Occurrences [facility] [employer] 12:06:43 CONTRAST [code = starting of Medicine 88770] 03/26/2021 until 03/26/2022 Encounters Start End Encounter Admission Attending Care Care Encounter Source Date/Time Date/Time Type Type Clinicians Facility Department ID 2021-08-21 2021-08-21 Outpatient [facility] [id number] [facility] 09:33:25 09:33:25 2021-06-09 2021-06-09 Outpatient [facility] [id number] [facility] 08:49:08 08:49:08 2021-05-21 2021-05-21 Office CAM COYLE [id number] [facility] 14:28:53 15:06:01 Visit SOLEDAD AMBULATOR 350.1.13.21 College Y 0.2.7.2.686 of [id number] Medi jazlyn 800 e 2021-05-21 2021-05-21 [facility] [id number] [facility] 13:00:00 14:34:28 Visit Mitra Zelaya McNair 350.1.13.21 College 0.2.7.2.686 of [id number] Medi jazlyn 510 e 2021-05-21 2021-05-21 Office CAM Castillo [id number] [facility] 11:30:00 14:02:49 Visit Mala AMBULATOR 350.1.13.21 College Emma Y 0.2.7.2.686 of [id number] Medi jazlyn 810 e 2021-05-21 2021-05-21 Outpatient [facility] [id number] [facility] 09:58:29 09:58:29 Colleg e of Medicin e 2021-05-16 2021-05-16 Office CAM BURKETT [id number] [facility] 08:11:36 08:30:01 Visit PREET AMBULATOR 350.1.13.21 College Y 0.2.7.2.686 of [id number] Medi jazlyn 800 e 2021-05-08 2021-05-11 Inpatient JOSE FRASER Surgery [id number] [facility] 06:39:00 16:56:00 MALA 2021-05-09 2021-05-09 Outpatient [facility] [id number] [facility] 00:00:00 23:59:00 Colleg e of Medicin e 2021-05-08 2021-05-08 Outpatient [facility] [id number] [facility] 06:39:00 23:59:00 Colleg [employer] Medicin e 2021-05-07 2021-05-07 [facility] [id number] [facility] 12:08:22 23:59:00 2021-04-23 2021-04-23 [id number] 14:11:58 14:52:07 MALA [employer] 2021-04-14 2021-04-14 Outpatient MATHEW MCKINNEY [facility] [id number] [facility] 09:06:13 23:59:00 CAPO 2021-04-14 2021-04-14 Outpatient MATHEW MCKINNEY [facility] [id number] [facility] 09:06:05 23:59:00 [facility] 2021-03-26 2021-03-26 Office CAM CASTILLO [id number] [facility] 10:20:48 16:24:59 Visit MALA AMBULATOR 350.1.13.21 College Y 0.2.7.2.686 of [id number] Medi jazlyn 810 e 2021-03-26 2021-03-26 Office BELKYS Lindsey [id number] [facility] 13:15:00 15:47:41 Visit Mitra Quinones 350.1.13.21 College 0.2.7.2.686 of [id number] Medi jazlyn 510 e 2021-03-26 2021-03-26 Office CAM Burkett [id number] [facility] 14:30:00 15:27:45 Visit Preet AMBULATOR 350.1.13.21 College Y 0.2.7.2.686 of [id number] [facility] jazlyn 800 e Results Test Description Test Time Test Comments Results Result [facility] e Comments TISSUE EXAM 2021-08-21 Surgical Pathology Report 08:18:46 Case: [id number] Authorizing Provider: Mala Castillo Jr., Collected: 05/08/2021 11:55 AM Ordering Location: [facility] THEE LERNER Received: 05/08/2021 12:08 PM PERIOPERATIVE SERVICES Pathologist: Jossie Corea MD Specimens: A) - Other, RIGHT CHEST MEDIAL 1 B) - Other, RIGHT CHEST MEDIAL 2 C) - Other, RIGHT CHEST INFERIOR 3 D) - Other, RIGHT CHEST INFERIOR 4 E) - Other, RIGHT CHEST LATERAL 5 F) - Other, RIGHT CHEST LATERAL 6 G) - Other, RIGHT CHEST SUPERIOR 7 H) - Other, RIGHT CHEST SUPERIOR 8 I) - Thymus J) - Lymph Node, ALLA NODE #1 K) - Lymph Node, ALLA NODE #2 L) - Other, PERICARDIAL FAT PAD M) - Other, RIGHT CHEST WALL, RIBS 3 & 4, ENBLOC W/ PECTORALIS MUSCLE, BREAST & STERNUM; SHORT SUPERIOR, LONG LATERAL, MEDIUM MEDIAL, DOUBLE DEEP The addendum is being issued to report the results of immunohistochemistry (IHC) testing for Mismatch Repair (MMR) Proteins, which has been performed at the request of the clinician.The diagnosis remains unchanged.IHC testing for all four MMR proteins was performed on selected block M10 with appropriate controls.RESULTSMLH1: Intact nuclear expressionMSH2: Intact nuclear expressionMSH6: Intact nuclear expressionPMS2: Intact nuclear expressionIHC InterpretationNo loss of nuclear expression of MMR proteins: 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 CHEST WALL, RIGHT WITH RIBS 3 & 4, STERNUM AND MUSCLE, RESECTION - ADDITIONAL AND DECALCIFIED SECTIONS SUBMITTED - TO REVEAL INFILTRATING TUMOR INVOLVING BONE, BONE MARROW, CARTILAGE AND MUSCLE - MEDIAL MARGIN (INCLUDING BONE MARGIN ) : POSITIVE - TUMOR WITHIN BONE AND BONE MARROW AT MEDIAL MARGIN - SEE PARTS A AND BAddendum electronically signed by Jossie Corea MD on 05/20/2021 at 9:48 AMA. CHEST WALL, RIGHT MEDIAL, #1, BIOPSY - NEGATIVE FOR CARCINOMAB. CHEST WALL, RIGHT MEDIAL, #2, BIOPSY - NEGATIVE FOR CARCINOMAC. CHEST WALL, RIGHT INFERIOR, #3, BIOPSY - NEGATIVE FOR CARCINOMAD. CHEST WALL, RIGHT INFERIOR, #4, BIOPSY - NEGATIVE FOR CARCINOMAE. CHEST WALL, RIGHT LATERAL, #5, BIOPSY - NEGATIVE FOR CARCINOMAF. CHEST WALL, RIGHT LATERAL, #6, BIOPSY - NEGATIVE FOR CARCINOMAG. CHEST WALL, RIGHT SUPERIOR, #7, BIOPSY - NEGATIVE FOR CARCINOMAH. CHEST WALL, RIGHT SUPERIOR, #8, BIOPSY - NEGATIVE FOR CARCINOMAI. THYMUS, EXCISION - ATROPHIC AND REACTIVE CHANGES - ONE TINY BENIGN LYMPH NODE (0/1) - NEGATIVE FOR CARCINOMAJ. LYMPH NODE, ALLA #1, EXCISION - ONE TINY BENIGN LYMPH NODE (0/1) - GRANULATION TISSUE - REACTIVE MESOTHELIUM - NEGATIVE FOR CARCINOMAK. LYMPH NODE, ALLA #2, EXCISION - REACTIVE MESOTHELIUM - NEGATIVE FOR CARCINOMAL. PERICARDIAL FAT PAD, EXCISION - REACTIVE MESOTHELIUM - NEGATIVE FOR CARCINOMAM. 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 - GREATEST MACROSCOPIC (GROSS) MEASUREMENT : 55MM - ASSOCIATED WITH AREAS OF NECROSIS - INVOLVING FIBROCONNECTIVE TISSUE AND SKELETAL MUSCLE - INVADING INTO ADJACENT CARTILAGE AND BONE - HISTOLOGIC GRADE : 3/3 (3 + 3 + 3) BY ESBR CRITERIA - MITOTIC COUNT : 32 MITOSIS PER 10 HPF'S - LYMPHATIC INVASIN IS SEEN, FOCALLY - SURGICAL MARGINS : POSITIVE - SUPERIOR : POSITIVE, FOCALLY - SEE PARTS G AND H FOR FINAL SUPERIOR MARGIN - ALL OTHER SOFT TISSUE MARGINS : NEGATIVE - ADDITIONAL SECTIONS (INCLUDING ADDITIONAL BONE MARGINS) ARE PENDING DECALCIFICATION Signing Pathologist Direct Phone Line: [phone] y signed by Jossie Corea MD on 05/16/2021 at 2:55 PMNOTE - The tumor invades the surrounding skeletal muscle, cartilage and bone. Although the tumor extends to the inked superior margin for part M, the FINAL soft tissue margins are all negative (see parts A-I; thymus specimen is true posterior margin)BIOMARKERS PERFORMED ON SECTION M10 ESTROGEN RECEPTOR: NEGATIVEProportion score: 0/5Intensity score: 0/3SUMMARY: NO SIGNAL PROGESTERONE RECEPTOR: NEGATIVEProportion score: 0/5Intensity score: 0/3SUMMARY: NO SIGNALHER 2 OVER-EXPRESSION: NEGATIVE (SCORE: 0) Ki67 (Proliferation marker): 82% (cut off-20%)A-H. 40163 X 8; 16076 X 8I. 83163 X 1J. 85030 X 1; 59250 X 1; 48340 X 3K. 02723 X 1L. 19569 X 1; 60500 X 1; 00217 X 4M. 81394 X 1; 75151 X 1; 43646 X 4Mass of sternum, mass of chest wall, rightA. Other, right chest medial 1B. Other, right chest medial 2C. Other, right chest inferior 3D. Other, right chest inferior 4A. Other, right chest lateral 5F. Other, right chest lateral 6D. Other, right chest superior 7H. Other, right chest superior 8I. ThymusJ. Lymph node, ALLA #1K. Lymph node, ALLA #2L. Pericardial fat padM. Right chest wall , enblocA-M. Performed.The interpretation of this case included the use of immunohistochemistry or special stains.BIOMARKERS PERFORMED ON M10ER - NEGATIVEPR - NEGATIVEHER2 - [id number] - HIGHIMMUNO STAINS PERFORMEDAE1/AE3 (J2, J3, L1) - HIGHLIGHTS MESOTHELIAL CELLSCALRETININ (J2, J3, L1) - HIGHLIGHTS MESOTHELIAL CELLSWT-1 (J2, J3, L1) - HIGHLIGHTS MESOTHELIAL CELLSCK5/6 (J2, J3, L1) - HIGHLIGHTS MESOTHELIAL NMZEAII74 (L1) - HIGHLIGHTS MACROPHAGESCAP REGULATION: FIXATION TIME FOR BIOMARKERS ASSESSMENTCollection date and time: 05/08/2021; 1206 HRSPlaced in fixative date and time: 05/08/2021; 1206 HRSRemoved from formalin date and time: 05/10/2021; 1330 HRSMethodology:Fixation type and length: tissue was fixed in 10% neutral buffered formalin for a minimal of at least 6 hours and not longer than 72 hours.Antibody and Assay Methodology: Antibodies for ER, PgR, Her2 and Ki67 were assessed using clones SP1, 1E2, 4B5 (FDA Approved [employer]) and 30-9 respectively utilizing the ultraView [place] DAB Detection Kit from [employer] [place], [place].Control Slides Examined: In-house known ER, FL, HER2 and Ki67 positive controls were evaluated along with test tissue. These control slides run alongside of the patients sample show appropriate staining.Interpretive Criteria: The staining results are according to the ASCO/CAP guidelines for HER2 (see Kenzie ELLER, Filipe PADILLA, Delia WALDEN, et al. HER 2 Testing in Breast Cancer: ASCO/CAP Focused Update. Arch Pathol Lab Med. 2018;142(11):3719-1937. doi:10.5858/arpa.2018-090 2-SA) and ER/FL (see Filipe Olivares, Edu Salazar, et al. ER and FL Testing in Breast Cancer: ASCO/CAP Guideline Update. J Clin Oncol. 2020;38(12):6427-8688. doi:10.1200/JCO.19.81380) .By ASCO/CAP guidelines, ER and FL "positive" requires greater or equal to 1% tumor cells showing nuclear staining. Tumor showing 1% - 10% tumor cells staining for ER are designated " ER Low Positive".HER 2 yi "positive" (3+) requires circumferential membrane staining that is complete and intense within more than 10% of the invasive tumor cells. HER 2 yi "equivocal" (2+) requires complete membrane staining that is weak / moderately intense in >10% of invasive tumor cells. HER 2 yi "negative" (1+) requires incomplete, faint membrane staining in >10% of invasive tumor cells and HER 2 yi "negative" (0) requires no staining or faint incomplete membrane staining in <= 10% of invasive tumor cells.The ER/FL Proportion Score indicates the proportion of positive staining tumor cells (0 = none; 1 < 1/100; 2 = 1/100-1/10; 3 = >1/10-1/3; 4 = >1/3-2/3; 5> 2/3). The intensity score indicates the average intensity of positive staining tumor cells (0 = none; 1 = weak; 2 = intermediate; 3 = strong). For the purpose of defining "positive", the proportion and intensity scores were added to obtain a total score (range 0-8). ER and PgR "positive" (total score >2) were defined in studies correlating IHC total scores with clinical outcome in patients receiving hormonal therapy (see: Modern Pathol 11:155, 1998; J Clin Oncol 17:1474, 1999; Int J Cancer 89:111, 2000; Breast Cancer Res Treat 76:S36[abst#30], 2002).Immunohistochemistr y was performed on paraffin sections of breast tissue for the factors listed. The immunostaining signals were expressed as scores representing the estimated proportion and intensity of positive tumor cells. Appropriate positive and negative controls were included in the evaluation.COMMENTER low positive (1%-10% positive) - The cancer in this sample has a low level (1%-10%) of ER expression by IHC. There are limited data on the overall benefit of endocrine therapies for patients with low level (1%-10%) ER expression, but they currently suggest possible benefit, so patients are considered eligible for endocrine treatment. There are data that suggest invasive cancers with these results are heterogeneous in both behavior and biology and often have gene expression profiles more similar to ER-negative cancers.ER (0%-10%) and no internal control - No internal controls are present, but external controls are appropriately positive. If needed, testing another specimen that contains internal controls may be warranted for confirmation of ER status.Immunohistochemist ry technical testing was performed at [facility], Pathology Laboratory where it was developed and its performance characteristics were determined. It has not been cleared or approved by the U.S. Food and Drug Administration. The FDA has determined that such clearance or approval is not necessary. The test is used for clinical purposes. It should not be regarded as investigational or for research. This laboratory is certified under the Clinical Laboratory Improvement Amendments of 1988 (CLIA-88) as qualified to perform high complexity clinical laboratory testing. [facility], Department of Pathology, [address] [place] [id number], [facility], [facility], [address] [place] [address], [facility], Department of [facility]ology, [address] [place] [address], VUD. Right chest medial #1, biopsy:-Negative for carcinomaThese findings were reported by Dr. Corea to Dr. Castillo on 05/08/2021 at 12:46 PM.FSB. Right chest medial #2, biopsy:-Negative for carcinomaThese findings were reported by Dr. Corea to Dr. Castillo on 05/08/2021 at 12:46 PM.FSC. Right chest inferior #3, biopsy:-Negative for carcinomaThese findings were reported by Dr. Corea to Dr. Castillo on 05/08/2021 at 12:46 PM.FSD. Right chest inferior #4, biopsy:-Negative for carcinomaThese findings were reported by Dr. Anmol Castillo on 05/08/2021 at 12:46 PM.FSE. Right chest lateral #5, biopsy:-Negative for carcinomaThese findings were reported by Dr. Corea to Dr. Castillo on 05/08/2021 at 12:46 PM.FSF. Right chest lateral #6, biopsy:-Negative for carcinomaThese findings were reported by Dr. Anmol Castillo on 05/08/2021 at 12:46 PM.FSG. Right chest superior #7, biopsy:-Negative for carcinomaThese findings were reported by Dr. Anmol Castillo on 05/08/2021 at 12:46 PM.FSH. Right chest tube. #8, biopsy:-Negative for carcinomaThese findings were reported by Dr. Anmol Castillo on 05/08/2021 at 12:46 PM.A. The specimen is received fresh for frozen section diagnosis, labeled with the patient's name, medical record number and "OTHER" and consists of is a 0.8 x 0.7 x 0.2 cm irregular red soft tissue fragment submitted in toto in FSA1. CGB. The specimen is received fresh for frozen section diagnosis, labeled with the patient's name, medical record number and "OTHER" and consists of is a 0.7 x 0.4 x 0.3 cm irregular red soft tissue fragment submitted in toto in FSB1.C. The specimen is received fresh for frozen section diagnosis, labeled with the patient's name, medical record number and "OTHER" and consists of is a 1.0 x 0.3 x 0.2 cm irregular red soft tissue fragment submitted in toto in FSC1.D. The specimen is received fresh for frozen section diagnosis, labeled with the patient's name, medical record number and "OTHER" and consists of a 0.9 x 0.8 x 0.3 cm irregular red soft tissue fragment submitted in toto in FSB1. CGE. The specimen is received fresh for frozen section diagnosis, labeled with the patient's name, medical record number and "OTHER" and consists of is a 0.7 x 0.3 x 0.3 cm irregular red soft tissue fragment submitted in toto in FSE1.F. The specimen is received fresh for frozen section diagnosis, labeled with the patient's name, medical record number and "OTHER" and consists of is a 0.9 x 0.3 x 0.3 cm irregular red soft tissue fragment submitted in toto in FSF1.G. The specimen is received fresh for frozen section diagnosis, labeled with the patient's name, medical record number and "OTHER" and consists of is a 0.9 x 0.4 x 0.3 cm irregular red soft tissue fragment submitted in toto in FSG1.H. The specimen is received fresh for frozen section diagnosis, labeled with the patient's name, medical record number and "OTHER" and consists of is a 1.0 x 0.5 x 0.3 cm irregular red soft tissue fragment submitted in toto in FSH1.I. The specimen is received in formalin labeled the patient's name, accession number and "thymus" and consists of a 5.0 x 4.0 x 3.0 cm aggregate of adipose tissue. There are no grossly identifiable lesions. The specimen is serially sectioned to reveal vascularized adipose tissue. Staff Psychiatrist sections submitted in cassettes I1-I5.J. Received in formalin labeled with patient's name, accession number and "LYMPH NODE" is a 5 x 2.6 x 1.5 cm yellow piece of fatty tissue. Specimen is serially sectioned to display no lymph nodes or masses specimen is submitted entirely in cassettes G1-G5.K. Received in formalin labeled with patient's name, accession number and "LYMPH NODE" is a 4 x 2 x 1.5 cm yellow fatty tissue specimen is serially section to display 1 whole lymph node measuring 0.2 x 0.2 x 0.2 cm. Specimen is submitted entirely in cassettes K1-K3.Section code:K1-1 whole lymph nodeK2-K3: Remainder of tissueL. Received in formalin labeled the patient's name, medical record number and "other" and consists of 2 pieces of adipose measuring 3.5 x 1.5 x 1.0 and 3.0 x 1.5 x 0.5 cm. Upon cross sectioning vascularized adipose is revealed. Staff Psychiatrist sections of each pieces are submitted in L1-L2. [facility]. Received in formalin labeled the patient's name, medical record number and "other "and consists of a oriented piece of fibromuscular and bone tissue measuring 6.5 from superior to inferior 7.0 from medial to lateral and 3.0 from anterior to posterior. The specimen is oriented with a short stitch marking superior, long stitch marking lateral, a medium stitch marking medial, and a double stitch marking deep. The specimen is inked anterior yellow, posterior black, superior blue and inferior orange. The specimen is serially sectioned to reveal a white fibrotic area located in the muscle and extends in between the ribs and to the superior, inferior, and posterior resection margins. The mass measures 5.5 x 2.0 x 3.0 cm. The mass is 0.7 from closest anterior resection margin. The medial and lateral resection margins appear to be uninvolved bone. The mass is located 3.0 cm from the lateral resection margin and 2.0 cm from the medial resection margin. Staff Psychiatrist sections are taken as follows:M1: Lateral resection margin en face, following decalcificationM2: Medial resection margin, en face, following decalcificationM3-M5 section mass from superior to inferior sequentially submitted (M3 and M5 following decalcificationM6: Mass to closest anterior marginM7: Mass to inferior and posterior marginM8: Mass to superior marginM9: Additional section of mass to posterior fasciaM 10: Mass to muscle M 11-M 14: Section of mass from superior to inferior following decalcificationKH POCT-GLUCOSE METER 2021-05-11 12:09:49 Test Item Value Reference Range Interpretation Comme nts POC-GLUCOSE METER ([facility]) 206 mg/dL 70-110 H : TESTED AT [facility] [address] [facility] (test code = 1538) [facility] X, [address]: Vocational Ed Instructor/Techni darnell ID = [id number] for Eren Melton on POCT-GLUCOSE [id number] 07:40:33 Test Item Value Reference Range Interpretation Comments POC-GLUCOSE METER 161 mg/dL 70-110 H : TESTED A T [facility] [address] ([facility]) (test code = NANCY Menard [facility], 1538) [address]: Vocational Ed Instructor/Techni darnell ID = [id number] for Do minguez, Tong BASIC METABOLIC [id number] 04:11:15 Test Item Value Reference Range Interpretation Comments SODIUM (BEAKER) 129 meq/L 136-145 L (test code = 381) POTASSIUM (BEAKER) 4.1 meq/L 3.5-5.1 (test code = 379) CHLORIDE (BEAKER) 99 meq/L 98-107 (test code = 382) CO2 (BEAKER) (test 22 meq/L 22-29 code = 355) BLOOD UREA NITROGEN 18 mg/dL 7-21 (BEAKER) (test code = 354) CREATININE (BEAKER) 0.75 mg/dL 0.57-1.25 (test code = 358) GLUCOSE RANDOM 140 mg/dL 70-105 H (BEAKER) (test code = 652) CALCIUM (BEAKER) 9.2 mg/dL 8.4-10.2 (test code = 697) EGFR (BEAKER) (test 74 mL/min/1.73 ESTIMA SHANTE GFR IS code = 1092) sq m NOT ACCURATE CREATININE CLEARANCE IN PREDICTING GLOMERULAR FILTRATION RATE . ESTIMATED GFR I S NOT APPLICABLE FOR DIALYSIS PATIEN TS. Vocational Ed Instructor ID - PIMAC [id number] 04:11:15 Test Item Value Reference Range Interpretation Comments MAGNESIUM (BEAKER) (test code = 1.8 mg/dL 1.6-2.6 627) Vocational Ed Instructor ID - PIMAC LCBC W/PLT COUNT & AUTO [id number] 03:54:26 Test Item Value Reference Range Interpretation Comments WHITE BLOOD CELL COUNT (BEAKER) 12.7 K/ L 3.5-10.5 H (test code = 775) RED BLOOD CELL COUNT (BEAKER) 3.46 M/ L 3.93-5.22 L (test code = 761) HEMOGLOBIN (BEAKER) (test code = 9.7 GM/DL 11.2-15.7 L 410) HEMATOCRIT (BEAKER) (test code = 30.1 % 34.1-44.9 L 411) MEAN CORPUSCULAR VOLUME (BEAKER) 87.0 fL 79.4-94.8 (test code = 753) MEAN CORPUSCULAR HEMOGLOBIN 28.0 pg 25.6-32.2 (BEAKER) (test code = 751) MEAN CORPUSCULAR HEMOGLOBIN CONC 32.2 GM/DL 32.2-35.5 (BEAKER) (test code = 752) RED CELL DISTRIBUTION WIDTH 13.2 % 11.7-14.4 (BEAKER) (test code = 412) PLATELET COUNT (BEAKER) (test 237 K/CU MM 150-450 code = 756) MEAN PLATELET VOLUME (BEAKER) 9.9 fL 9.4-12.3 (test code = 754) NUCLEATED RED BLOOD CELLS 0 /100 WBC 0-0 (BEAKER) (test code = 413) NEUTROPHILS RELATIVE PERCENT 81 % (BEAKER) (test code = 429) LYMPHOCYTES RELATIVE PERCENT 10 % (BEAKER) (test code = 430) MONOCYTES RELATIVE PERCENT 7 % (BEAKER) (test code = 431) EOSINOPHILS RELATIVE PERCENT 1 % (BEAKER) (test code = 432) BASOPHILS RELATIVE PERCENT 0 % (BEAKER) (test code = 437) NEUTROPHILS ABSOLUTE COUNT 10.30 K/ L 1.56-6.13 H (BEAKER) (test code = 670) LYMPHOCYTES ABSOLUTE COUNT 1.27 K/ L 1.18-3.74 (BEAKER) (test code = 414) MONOCYTES ABSOLUTE COUNT (BEAKER) 0.85 K/ L 0.24-0.36 H (test code = 415) EOSINOPHILS ABSOLUTE COUNT 0.13 K/ L 0.04-0.36 (BEAKER) (test code = 416) BASOPHILS ABSOLUTE COUNT (BEAKER) 0.03 K/ L 0.01-0.08 (test code = 417) IMMATURE GRANULOCYTES-RELATIVE 1 % 0-1 PERCENT (BEAKER) (test code = 2801) POCT-GLUCOSE [id number] 21:40:39 Test Item Value Reference Range Interpretation Comments POC-GLUCOSE METER 125 mg/dL 70-110 H : TESTED A T [facility] 67[address] (BEAKER) (test code = [facility], 153) [address]: Vocational Ed Instructor/Techni darnell ID = [id number] for GAGE LEE POCT-GLUCOSE [id number] 17:03:06 Test Item Value Reference Range Interpretation Comments POC-GLUCOSE METER 158 mg/dL 70-110 H : TESTED A T [facility] [address] (BEAKER) (test code = [facility], 153) [address]: Vocational Ed Instructor/Techni darnell ID = [id number] for Tong Eason BASIC METABOLIC [id number] 16:26:03 Test Item Value Reference Range Interpretation Comments SODIUM (BEAKER) 124 meq/L 136-145 L (test code = 381) POTASSIUM (BEAKER) 4.7 meq/L 3.5-5.1 (test code = 379) CHLORIDE (BEAKER) 95 meq/L 98-107 L (test code = 382) CO2 (BEAKER) (test 24 meq/L 22-29 code = 355) BLOOD UREA NITROGEN 22 mg/dL 7-21 H (BEAKER) (test code = 354) CREATININE (BEAKER) 0.82 mg/dL 0.57-1.25 (test code = 358) GLUCOSE RANDOM 161 mg/dL 70-105 H (BEAKER) (test code = 652) CALCIUM (BEAKER) 8.8 mg/dL 8.4-10.2 (test code = 697) EGFR (BEAKER) (test 67 mL/min/1.73 ESTIMA SHANTE GFR IS code = 1092) sq m NOT ACCURATE CREATININE CLEARANCE IN PREDICTING GLOMERULAR FILTRATION RATE . ESTIMATED GFR I S NOT APPLICABLE FOR DIALYSIS PATIEN TS. Vocational Ed Instructor ID - PHYLLIS MPOCT-GLUCOSE [id number] 12:00:29 Test Item Value Reference Range Interpretation Comments POC-GLUCOSE METER 174 mg/dL 70-110 H : TESTED A T [facility] [address] (BEAKER) (test code = [facility], 1538) [address]: Vocational Ed Instructor/Techni darnell ID = [id number] for Do guerreroTong dumont RAD, CHEST, 1 VIEW, NON [id number] 10:09:00Reason for exam:- >nausea/emesis, known hiatal hernia, evaluate for intrathoracic gastric bubbleReason for exam:->upright CXRShould this be performed at the bedside?->[facility] 1935 Sex: FFINAL REPORT TECHNIQUE: Frontal view of the chest. INDICATION: nausea/emesis, known hiatal hernia, evaluate for intrathoracic gastric bubbleupright CXR COMPARISON: 05/09/2021. FINDINGS: LINES/TUBES: None. LUNGS: There is mild elevation of the right hemidiaphragm. There are increased linear opacities in the bilateral lung bases consistent with subsegmental atelectasis. There is increased mild blunting of the left costophrenic sulcus. No pneumothorax.. HEART AND MEDIASTINUM: The cardiomediastinal silhouette is stable. SOFT TISSUES AND BONES: Unremarkable. IMPRESSION:Increased small left- sided pleural effusion with increased bibasilar atelectasis. No pneumothorax.. Signed: [facility]ai [facility] Verified Date/Time: 05/10/2021 10:09:27 Reading Location:[facility] C013Y CT Body Reading Room POCT-GLUCOSE [id number] 07:40:39 Test Item Value Reference Range Interpretation Comments POC-GLUCOSE METER 150 mg/dL 70-110 H : TESTED A T [facility] [address] (BEAKER) (test code = NANCY Sailaja [facility], 1538) [address]: Vocational Ed Instructor/Techni darnell ID = [id number] for Do Tong bray BASIC METABOLIC [id number] 06:36:28 Test Item Value Reference Range Interpretation Comments SODIUM (BEAKER) 124 meq/L 136-145 L (test code = 381) POTASSIUM (BEAKER) 4.3 meq/L 3.5-5.1 (test code = 379) CHLORIDE (BEAKER) 95 meq/L 98-107 L (test code = 382) CO2 (BEAKER) (test 22 meq/L 22-29 code = 355) BLOOD UREA NITROGEN 25 mg/dL 7-21 H (BEAKER) (test code = 354) CREATININE (BEAKER) 0.87 mg/dL 0.57-1.25 (test code = 358) GLUCOSE RANDOM 176 mg/dL 70-105 H (BEAKER) (test code = 652) CALCIUM (BEAKER) 8.5 mg/dL 8.4-10.2 (test code = 697) EGFR (BEAKER) (test 62 mL/min/1.73 ESTIMA SHANTE GFR IS code = 1092) sq m NOT ACCURATE CREATININE CLEARANCE IN PREDICTING GLOMERULAR FILTRATION RATE . ESTIMATED GFR I S NOT APPLICABLE FOR DIALYSIS PATIEN TS. Vocational Ed Instructor ID - PHYLLIS MCBC (HEMOGRAM ONLY)2021-05-10 06:08:05 Test Item Value Reference Range Interpretation Comments WHITE BLOOD CELL COUNT (BEAKER) 13.9 K/ L 3.5-10.5 H (test code = 775) RED BLOOD CELL COUNT (BEAKER) 3.35 M/ L 3.93-5.22 L (test code = 761) HEMOGLOBIN (BEAKER) (test code = 9.4 GM/DL 11.2-15.7 L 410) HEMATOCRIT (BEAKER) (test code = 28.4 % 34.1-44.9 L 411) MEAN CORPUSCULAR VOLUME (BEAKER) 84.8 fL 79.4-94.8 (test code = 753) MEAN CORPUSCULAR HEMOGLOBIN 28.1 pg 25.6-32.2 (BEAKER) (test code = 751) MEAN CORPUSCULAR HEMOGLOBIN CONC 33.1 GM/DL 32.2-35.5 (BEAKER) (test code = 752) RED CELL DISTRIBUTION WIDTH 13.3 % 11.7-14.4 (BEAKER) (test code = 412) PLATELET COUNT (BEAKER) (test 214 K/CU MM 150-450 code = 756) MEAN PLATELET VOLUME (BEAKER) 9.8 fL 9.4-12.3 (test code = 754) NUCLEATED RED BLOOD CELLS 0 /100 WBC 0-0 (BEAKER) (test code = 413) POCT-GLUCOSE [id number] 21:26:28 Test Item Value Reference Range Interpretation Comments POC-GLUCOSE METER 231 mg/dL 70-110 H : TESTED A T [facility] [address] (BEAKER) (test code = [facility] [place], 1538) [address]: Vocational Ed Instructor/Techni darnell ID = [id number] for NIDHI ZHENG SE POCT-GLUCOSE [id number] 17:04:43 Test Item Value Reference Range Interpretation Comments POC-GLUCOSE METER 197 mg/dL 70-110 H : TESTED A T [facility] [address] (BEAKER) (test code = NANC[place] [facility], 1538) [address]: Vocational Ed Instructor/Techni darnell ID = [id number] for Tong Eason (CELLAVISION MANUAL DIFF)2021-05-09 15:46:46 Test Item Value Reference Range Interpretation Comments NEUTROPHILS - REL 75 % (CELLAVISION)(BEAKER) (test code = 2816) LYMPHOCYTES - REL 4 % (CELLAVISION)(BEAKER) (test code = 2817) MONOCYTES - REL 6 % (CELLAVISION)(BEAKER) (test code = 2818) BANDS - REL (CELLAVISION)(BEAKER) 15 % 0-10 H (test code = 2826) NEUTROPHILS - ABS 19.95 K/ul 1.56-6.13 H (CELLAVISION)(BEAKER) (test code = 2830) LYMPHOCYTES - ABS 1.06 K/ul 1.18-3.74 L (CELLAVISION)(BEAKER) (test code = 2831) MONOCYTES - ABS 1.60 K/uL 0.24-0.36 H (CELLAVISION)(BEAKER) (test code = 2832) BANDS - ABS (CELLAVISION)(BEAKER) 3.99 K/uL 0.00-0.80 H (test code = 2840) TOTAL COUNTED (BEAKER) (test code 100 = 1351) RBC MORPHOLOGY (BEAKER) (test code Normal = 762) WBC MORPHOLOGY (BEAKER) (test code Normal = 487) GIANT PLATELETS (BEAKER) (test Present code = 313) ARTIFACT (CELLAVISION)(BEAKER) Present (test code = 3432) PLATELET CONCENTRATION Adequate (CELLAVISION)(BEAKER) (test code = 3438) Vocational Ed Instructor ID - Niru Salazar comments: Slide comments:HIGH SENSITIVITY TROPONIN [id number] 15:46:13 Test Item Value Reference Range Interpretation Comments HIGH SENSITIVITY 6 pg/ml See_Comment [Automated message] TROPONIN I (test code = The system which [id number]) generated this result transmitted ref erence range: <=17. Th e reference range was not used to interpr et this result as normal/abnormal . Vocational Ed Instructor ID - grace wThe BOX SEALING MACHINE CATCHER STAT High Sensitivity Troponin-I results should be used in conjunction with other diagnostic information such as ECG, clinical observations and information, and patient symptoms to aid in the diagnosis of [place].BASIC METABOLIC [id number] 15:39:16 Test Item Value Reference Range Interpretation Comments SODIUM (BEAKER) 129 meq/L 136-145 L (test code = 381) POTASSIUM (BEAKER) 4.8 meq/L 3.5-5.1 (test code = 379) CHLORIDE (BEAKER) 98 meq/L 98-107 (test code = 382) CO2 (BEAKER) (test 22 meq/L 22-29 code = 355) BLOOD UREA NITROGEN 24 mg/dL 7-21 H (BEAKER) (test code = 354) CREATININE (BEAKER) 1.24 mg/dL 0.57-1.25 (test code = 358) GLUCOSE RANDOM 219 mg/dL 70-105 H (BEAKER) (test code = 652) CALCIUM (BEAKER) 9.2 mg/dL 8.4-10.2 (test code = 697) EGFR (BEAKER) (test 41 mL/min/1.73 ESTIMA SHANTE GFR IS code = 1092) sq m NOT ACCURATE CREATININE CLEARANCE IN PREDICTING GLOMERULAR FILTRATION RATE . ESTIMATED GFR I S NOT APPLICABLE FOR DIALYSIS PATIEN TS. Vocational Ed Instructor ID Geovanna edwards wCBC W/PLT COUNT & AUTO [id number] 15:23:43 Test Item Value Reference Range Interpretation Comments WHITE BLOOD CELL COUNT (BEAKER) 26.6 K/ L 3.5-10.5 H (test code = 775) RED BLOOD CELL COUNT (BEAKER) 3.86 M/ L 3.93-5.22 L (test code = 761) HEMOGLOBIN (BEAKER) (test code = 10.9 GM/DL 11.2-15.7 L 410) HEMATOCRIT (BEAKER) (test code = 34.7 % 34.1-44.9 411) MEAN CORPUSCULAR VOLUME (BEAKER) 89.9 fL 79.4-94.8 (test code = 753) MEAN CORPUSCULAR HEMOGLOBIN 28.2 pg 25.6-32.2 (BEAKER) (test code = 751) MEAN CORPUSCULAR HEMOGLOBIN CONC 31.4 GM/DL 32.2-35.5 L (BEAKER) (test code = 752) RED CELL DISTRIBUTION WIDTH 13.4 % 11.7-14.4 (BEAKER) (test code = 412) PLATELET COUNT (BEAKER) (test 327 K/CU MM 150-450 code = 756) MEAN PLATELET VOLUME (BEAKER) 9.8 fL 9.4-12.3 (test code = 754) NUCLEATED RED BLOOD CELLS 0 /100 WBC 0-0 (BEAKER) (test code = 413) RAD, CHEST, 1 VIEW, NON [id number] 13:56:00Reason for exam:->[facility] 1935 Sex: FFINAL REPORT Exam: RAD, CHEST, 1 VIEW, NON DEPTDate: 05/09/2021 1:54 PM Indication:CT removalComparison: 05/09/2021, nine hours prior. FINDINGS: Lines/Tubes/Devices: Interval removal of right IJ CVC. Interval removal of right-sided chest tube. Lungs/pleura:Persistentlyelevated right hemidiaphragm. Right base airspace opacity. Blunting of the right costophrenic angle. No pneumothorax.. Heart/Mediastinum:Unchanged Bones/Soft Tissues: No acute osseous abnormality. Upper abdomen: Unremarkable. IMPRESSION:Interval removal of right IJ CVC and right-sided chest tube.Persistent elevated right hemidiaphragm.Right base airspace opacity, likely atelectasis with trace righteffusion.No pneumothorax is seen at this time. Signed: Fahrtash, Layton MDReport Verified Date/Time:05/09/2021 13:56:00 Reading Location: [facility] Radiology Reading Room -GLUCOSE [id number] 09:29:01 Test Item Value Reference Range Interpretation Comments POC-GLUCOSE METER 212 mg/dL 70-110 H : TESTED A T [facility] [address] (BEAKER) (test code = [place], 1538) [address]: Vocational Ed Instructor/Techni darnell ID = [id number] for Sa ntiago (contract), Cry stal RAD, CHEST, 1 VIEW, NON [id number] 07:57:00Reason for exam:->daily cxrShould this be performed at the bedside?->Yes [facility] 1935 Sex: FFINAL REPORT Exam: RAD, CHEST, 1 VIEW, NON DEPTDate: 05/09/2021 7:54 AM Indication:daily cxrComparison: 05/08/2021 FINDINGS: Lines/Tubes/Devices: Right IJ CVC in place with distal tip projecting over the cavoatrial junction. Stable right chest tubes. Lungs/pleura:Borderline lung volumes. Faint right midlung and basilar airspace opacities. No significant pleural effusion. No pneumothorax. Heart/Mediastinum:Unchanged Bones/Soft Tissues: No acute osseous abnormality. Upper abdomen: Unremarkable. IMPRESSION:No significant interval change. Signed: Layton Morales Verified Date/Time: 05/09/2021 07:57:06 Reading Location: [facility] Reading Room BASIC METABOLIC [id number] 04:02:09 Test Item Value Reference Range Interpretation Comments SODIUM (BEAKER) 133 meq/L 136-145 L (test code = 381) POTASSIUM (BEAKER) 4.6 meq/L 3.5-5.1 (test code = 379) CHLORIDE (BEAKER) 102 meq/L 98-107 (test code = 382) CO2 (BEAKER) (test 21 meq/L 22-29 L code = 355) BLOOD UREA NITROGEN 19 mg/dL 7-21 (BEAKER) (test code = 354) CREATININE (BEAKER) 0.75 mg/dL 0.57-1.25 (test code = 358) GLUCOSE RANDOM 218 mg/dL 70-105 H (BEAKER) (test code = 652) CALCIUM (BEAKER) 9.2 mg/dL 8.4-10.2 (test code = 697) EGFR (BEAKER) (test 74 mL/min/1.73 ESTIMA SHANTE GFR IS code = 1092) sq m NOT ACCURATE CREATININE CLEARANCE IN PREDICTING GLOMERULAR FILTRATION RATE . ESTIMATED GFR I S NOT APPLICABLE FOR DIALYSIS PATIEN TS. Vocational Ed Instructor ID - GRACE WCBC (HEMOGRAM ONLY)2021-05-09 03:40:43 Test Item Value Reference Range Interpretation Comments WHITE BLOOD CELL COUNT (BEAKER) 16.9 K/ L 3.5-10.5 H (test code = 775) RED BLOOD CELL COUNT (BEAKER) 3.83 M/ L 3.93-5.22 L (test code = 761) HEMOGLOBIN (BEAKER) (test code = 10.5 GM/DL 11.2-15.7 L 410) HEMATOCRIT (BEAKER) (test code = 34.7 % 34.1-44.9 411) MEAN CORPUSCULAR VOLUME (BEAKER) 90.6 fL 79.4-94.8 (test code = 753) MEAN CORPUSCULAR HEMOGLOBIN 27.4 pg 25.6-32.2 (BEAKER) (test code = 751) MEAN CORPUSCULAR HEMOGLOBIN CONC 30.3 GM/DL 32.2-35.5 L (BEAKER) (test code = 752) RED CELL DISTRIBUTION WIDTH 13.3 % 11.7-14.4 (BEAKER) (test code = 412) PLATELET COUNT (BEAKER) (test 298 K/CU MM 150-450 code = 756) MEAN PLATELET VOLUME (BEAKER) 9.7 fL 9.4-12.3 (test code = 754) NUCLEATED RED BLOOD CELLS 0 /100 WBC 0-0 (BEAKER) (test code = 413) POCT-GLUCOSE [id number] 21:03:07 Test Item Value Reference Range Interpretation Comments POC-GLUCOSE METER 244 mg/dL 70-110 H : TESTED A T [facility] [address] (BEAKER) (test code = [place], 1538) [address]: Vocational Ed Instructor/Techni darnell ID = [id number] for Ad ams, Kimetra RAD, CHEST, 1 VIEW, NON [id number] 16:36:00Reason for exam:->post opShould this be performed at the bedside?->Yes [facility] 1935 Sex: FFINAL REPORT TECHNIQUE: One view of the chest. INDICATION: 85-year-old woman postop. COMPARISON: Chest CT and chest MRI 04/14/2021. FINDINGS: LINES/TUBES: Right internal jugular central venous catheter terminates over the expected region of the cavoatrial junction. Right chest tube terminates over the right axillary region. Additional right chest tube terminates over the medial right lower lung zone. LUNGS: Lungs are well inflated. Apparent opacity over the right midlung zone. Streaky airspace opacities in the right lung base. PLEURA: No significant pneumothorax or pleural effusion. HEART AND MEDIASTINUM: Cardiomediastinal silhouette is within normal limits. BONES AND SOFT TISSUES: No acute osseous abnormality. Clips project over the right axilla. IMPRESSION:Jana es/tubes as above. Apparent opacity over the right midlung zone may be due to increased attenuation of the overlying soft tissues, however underlying pneumonia cannot be excluded. Right basilar airspace opacities, likely atelectasis. Signed: Rosalva Schwartz MDReport Verified Date/Time: 05/08/2021 16:36:33 BASI METABOLIC [id number] 16:20:49 Test Item Value Reference Range Interpretation Comments SODIUM (BEAKER) 136 meq/L 136-145 (test code = 381) POTASSIUM (BEAKER) 4.4 meq/L 3.5-5.1 (test code = 379) CHLORIDE (BEAKER) 106 meq/L 98-107 (test code = 382) CO2 (BEAKER) (test 22 meq/L 22-29 code = 355) BLOOD UREA NITROGEN 19 mg/dL 7-21 (BEAKER) (test code = 354) CREATININE (BEAKER) 0.71 mg/dL 0.57-1.25 (test code = 358) GLUCOSE RANDOM 214 mg/dL 70-105 H (BEAKER) (test code = 652) CALCIUM (BEAKER) 9.8 mg/dL 8.4-10.2 (test code = 697) EGFR (BEAKER) (test 79 mL/min/1.73 ESTIMA SHANTE GFR IS code = 1092) sq m NOT ACCURATE CREATININE CLEARANCE IN PREDICTING GLOMERULAR FILTRATION RATE . ESTIMATED GFR I S NOT APPLICABLE FOR DIALYSIS PATIEN TS. Vocational Ed Instructor ID - BSCBC (HEMOGRAM ONLY)2021-05-08 15:46:02 Test Item Value Reference Range Interpretation Comments WHITE BLOOD CELL COUNT (BEAKER) 17.4 K/ L 3.5-10.5 H (test code = 775) RED BLOOD CELL COUNT (BEAKER) 4.01 M/ L 3.93-5.22 (test code = 761) HEMOGLOBIN (BEAKER) (test code = 11.2 GM/DL 11.2-15.7 410) HEMATOCRIT (BEAKER) (test code = 36.9 % 34.1-44.9 411) MEAN CORPUSCULAR VOLUME (BEAKER) 92.0 fL 79.4-94.8 (test code = 753) MEAN CORPUSCULAR HEMOGLOBIN 27.9 pg 25.6-32.2 (BEAKER) (test code = 751) MEAN CORPUSCULAR HEMOGLOBIN CONC 30.4 GM/DL 32.2-35.5 L (BEAKER) (test code = 752) RED CELL DISTRIBUTION WIDTH 13.3 % 11.7-14.4 (BEAKER) (test code = 412) PLATELET COUNT (BEAKER) (test 321 K/CU MM 150-450 code = 756) MEAN PLATELET VOLUME (BEAKER) 9.9 fL 9.4-12.3 (test code = 754) NUCLEATED RED BLOOD CELLS 0 /100 WBC 0-0 (BEAKER) (test code = 413) HGB/HCT (H&H) - STAT [id number] 11:33:40 Test Item Value Reference Range Interpretation Comments HEMOGLOBIN (BEAKER) (test code = 11.2 GM/DL 12.0-15.0 L 410) HEMATOCRIT (BEAKER) (test code = 33.0 % 36.0-45.0 L 411) GLUCOSE-STAT [id number] 11:33:34 Test Item Value Reference Range Interpretation Comments GLUCOSE RANDOM (BEAKER) (test code 172 mg/dL 70-110 H = 652) CALCIUM, [id number] 11:33:27 Test Item Value Reference Range Interpretation Comments CALCIUM IONIZED (BEAKER) (test 1.10 mmol/L 1.12-1.27 L code = 698) PH, BLOOD (BEAKER) (test code = 7.40 1810) BLOOD GAS, [id number] 11:33:26 Test Item Value Reference Range Interpretation Comments PH ARTERIAL (BEAKER) (test code = 7.41 7.35-7.45 383) PCO2 ARTERIAL (BEAKER) (test code 35 mm Hg 35-45 = 384) PO2 ARTERIAL (BEAKER) (test code 176 mm Hg 80-90 H = 385) O2 SATURATION ARTERIAL (BEAKER) 99.2 % 96.0-97.0 H (test code = 386) HCO3 ARTERIAL (BEAKER) (test code 22 mmol/L 21-29 = 388) BASE EXCESS ARTERIAL (BEAKER) -2.3 mmol/L -2.0-3.0 L (test code = 387) PATIENT TEMPERATURE (BEAKER) 36.0 (test code = 1818) FIO2 (BEAKER) (test code = 1819) 57.0 SODIUM NA-STAT [id number] 11:33:07 Test Item Value Reference Range Interpretation Comments SODIUM (BEAKER) (test code = 381) 135 meq/L 136-145 L POTASSIUM-STAT [id number] 11:33:07 Test Item Value Reference Range Interpretation Comments POTASSIUM (BEAKER) (test code = 3.8 meq/L 3.6-5.5 379) COMPREHENSIVE METABOLIC [id number] 10:11:53 Test Item Value Reference Range Interpretation Comments TOTAL PROTEIN 7.5 gm/dL 6.0-8.3 (BEAKER) (test code = 770) ALBUMIN (BEAKER) 4.4 g/dL 3.5-5.0 (test code = 1145) ALKALINE PHOSPHATASE 49 U/L 40-150 (BEAKER) (test code = 346) BILIRUBIN TOTAL 0.3 mg/dL 0.2-1.2 (BEAKER) (test code = 377) SODIUM (BEAKER) (test 135 meq/L 136-145 L code = 381) POTASSIUM (BEAKER) 4.4 meq/L 3.5-5.1 (test code = 379) CHLORIDE (BEAKER) 102 meq/L 98-107 (test code = 382) CO2 (BEAKER) (test 26 meq/L 22-29 code = 355) BLOOD UREA NITROGEN 19 mg/dL 7-21 (BEAKER) (test code = 354) CREATININE (BEAKER) 0.75 mg/dL 0.57-1.25 (test code = 358) GLUCOSE RANDOM 205 mg/dL 70-105 H (BEAKER) (test code = 652) CALCIUM (BEAKER) 9.8 mg/dL 8.4-10.2 (test code = 697) AST (SGOT) (BEAKER) 28 U/L 5-34 (test code = 353) ALT (SGPT) (BEAKER) 22 U/L 6-55 (test code = 347) EGFR (BEAKER) (test 74 mL/min/1.73 ESTIMA SHANTE GFR IS code = 1092) sq m NOT ACCURATE CREATININE CLEARANCE IN PREDICTING GLOMERULAR FILTRATION RATE . ESTIMATED GFR I S NOT APPLICABLE FOR DIALYSIS PATIEN TS. Vocational Ed Instructor ID - [id number] 09:45:02 Test Item Value Reference Range Interpretation Comments PROTIME (BEAKER) (test 13.9 seconds 11.9-14.2 code = 759) INR (BEAKER) (test 1.09 See_Comment [Automat ed code = 370) message] The sy stem which generated this result transmitted reference range : <=5.90. The reference range was not used to interpret this result as normal/abnormal . PARTIAL THROMBOPLASTIN 32.4 seconds 22.5-36.0 TIME (BEAKER) (test code = 760) RECOMMENDED COUMADIN/WARFARIN INR THERAPY RANGESSTANDARD DOSE: 2.0 - 3.0 Includes: PROPHYLAXIS forvenous thrombosis, systemic embolization; TREATMENT for venous thrombosis and/or pulmonary embolus.HIGH RISK: Target INR is 2.5-3.5 for patients with mechanical heart valves.CBC W/PLT COUNT & AUTO DIFFERENTIAL 2021-05-08 09:29:58 Test Item Value Reference Range Interpretation Comments WHITE BLOOD CELL COUNT (BEAKER) 8.7 K/ L 3.5-10.5 (test code = 775) RED BLOOD CELL COUNT (BEAKER) 4.28 M/ L 3.93-5.22 (test code = 761) HEMOGLOBIN (BEAKER) (test code = 12.0 GM/DL 11.2-15.7 410) HEMATOCRIT (BEAKER) (test code = 38.4 % 34.1-44.9 411) MEAN CORPUSCULAR VOLUME (BEAKER) 89.7 fL 79.4-94.8 (test code = 753) MEAN CORPUSCULAR HEMOGLOBIN 28.0 pg 25.6-32.2 (BEAKER) (test code = 751) MEAN CORPUSCULAR HEMOGLOBIN CONC 31.3 GM/DL 32.2-35.5 L (BEAKER) (test code = 752) RED CELL DISTRIBUTION WIDTH 13.4 % 11.7-14.4 (BEAKER) (test code = 412) PLATELET COUNT (BEAKER) (test 284 K/CU MM 150-450 code = 756) MEAN PLATELET VOLUME (BEAKER) 9.6 fL 9.4-12.3 (test code = 754) NUCLEATED RED BLOOD CELLS 0 /100 WBC 0-0 (BEAKER) (test code = 413) NEUTROPHILS RELATIVE PERCENT 70 % (BEAKER) (test code = 429) LYMPHOCYTES RELATIVE PERCENT 19 % (BEAKER) (test code = 430) MONOCYTES RELATIVE PERCENT 6 % (BEAKER) (test code = 431) EOSINOPHILS RELATIVE PERCENT 4 % (BEAKER) (test code = 432) BASOPHILS RELATIVE PERCENT 1 % (BEAKER) (test code = 437) NEUTROPHILS ABSOLUTE COUNT 6.06 K/ L 1.56-6.13 (BEAKER) (test code = 670) LYMPHOCYTES ABSOLUTE COUNT 1.67 K/ L 1.18-3.74 (BEAKER) (test code = 414) MONOCYTES ABSOLUTE COUNT (BEAKER) 0.55 K/ L 0.24-0.36 H (test code = 415) EOSINOPHILS ABSOLUTE COUNT 0.31 K/ L 0.04-0.36 (BEAKER) (test code = 416) BASOPHILS ABSOLUTE COUNT (BEAKER) 0.04 K/ L 0.01-0.08 (test code = 417) IMMATURE GRANULOCYTES-RELATIVE 1 % 0-1 PERCENT (BEAKER) (test code = 2801) POCT-GLUCOSE [id number] 08:38:36 Test Item Value Reference Range Interpretation Comments POC-GLUCOSE METER 208 mg/dL 70-110 H : TESTED A T [facility] 6720 (BEAKER) (test code = NANCY Menard [facility], 1538) [address]: Vocational Ed Instructor/Techni darnell ID = [id number] for FAUSTO GARDNER MR, CHEST, WITHOUT / WITH IV [id number] 14:18:00Reason for exam: chest wall mass consistent with breast metastasisUnlisted Reason for Exam - Click Yes and Enter Reason Below->YesUnlisted Reason for Exam->Z85.3 R22.2 [facility] 1935 Sex: FFINAL REPORT EXAMINATION: MR, CHEST, WITHOUT / WITH IV CONTRAST INDICATION: History of breast malignancy. Chest wall mass. COMPARISON: Correlated with CT chest with contrast from April 14, 2021 Technique: 1.5 T [employer] MRI scanner. Coronary T1, axial and coronal T2 fat-sat. Axial T1 fat-sat pre and post gadolinium. Coronal in and out of phase imaging. Sagittal T2 STIR. FINDINGS: CHEST WALL: Enhancing right anterior chest wall mass between the right third and fourth costal cartilages. The mass is encasing and infiltrating the right third and fourth costal cartilages, adjacent costochondral junctions and body of the sternum medially. Anteriorly there is infiltration of the medial end of right pectoralis major muscle. The muscle demonstrates abnormal enhancement and T2 hyperintensity suggesting edema. LUNGS/PLEURA:There are a few pulmonary nodules, betterseen on chest CT.No pleural effusions. AIRWAYS: The airways are normal, without endobronchial lesions. No anomalies of the major airways. HEART AND MEDIASTINUM: The thyroid gland is normal. Mild left atrial enlargement. No pericardial effusion. The thoracic aorta is normal in course, caliber, and cont our. No coarctation identified. There is no evidence for acute aortic pathology, such as dissection, intramural hematoma, or contained rupture. The pulmonary arteries are normal in size. The esophagus is not dilated. Small sliding hiatal hernia. LYMPH NODES: Nonenhancing T1 hyperintense lymph nodes in the subcarina, correlate with calcified subcarinal lymph nodes. There is no suspicious mediastinal, hilar or axillary lymphadenopathy. LIMITED ABDOMEN:The visualized proximal abdominal aorta is normal in course, caliber and contour. Hepatic steatosis. Uncomplicated cholelithiasis. Small simple cortical cysts in both kidneys. Simple renal sinus cysts in both kidneys, left > right. BONES AND SOFTTISSUES: T2 hyperintensity and abnormal enhancement of the sternal body between right third and fourth costal cartilages. Cystic structure (2.3 cm x 2.2 cm) in the right posterior chest wall at the level of T2 spinous process likely a sebaceous/epidermoid cyst. IMPRESSION: 1. Right anterior chest wallmass between the right third and fourth costal cartilages. There is infiltration of right third and fourth costal cartilages, adjacent costochondral junctions and body of the sternum medially. The medial end of right pectoralis major muscle demonstrates abnormal T2 signal and enhancement suggesting infiltration. 2. Evidence of prior granulomatous disease. 3. Mild left atrial enlargement. 4. Uncomplicated cholelithiasis. 5. Indeterminate noncalcified solid pulmonary nodule in the medial segment of the right middle lobe on chest CT. Attention on follow-up imaging. 6. Sebaceous/epidermoid cyst in the right posterior chest wall at the level of T2 spinous process. Signed: Blake Lan Date/Time: 04/14/2021 14:18:49 Reading Location: [facility] Reading Room [address] [place] [address] CT, CHEST, WITH IV [id number] 11:13:00Reason for exam: chest wall mass consistent with breast metastasisUnlisted Reason for Exam - Click Yes and Enter Reason Below->YesUnlisted Reason for Exam->Z85.3 R22.2 [facility] MELONY : 1935 Sex: FFINAL REPORT EXAMINATION: CT, CHEST, WITH IV CONTRAST INDICATION: History of breast cancer. Chest wall mass. TECHNIQUE: Chest was scanned utilizing a multidetector helical scanner from the lung apex through the level of the adrenal glands after administration ofIV contrast. Coronal and sagittal reformations were obtained. IV CONTRAST: 100 mL of Isovue-300ORAL CONTRAST: None COMPLICATIONS: None RADIATION DOSE:Total DLP: 391 mGy*cmEstimated effective dose: 391 x 0.012 mSvCTDIvol has been reviewed. It is below the limits set by the Radiation Protocol Committee (RPC). FINDINGS: CHEST WALL: Lenticular anterior chest wall soft tissue mass (3.6 cm (craniocaudal) x3.4 cm (wide) x 1.7 cm (anteroposterior) between the right third and fourth costal cartilages along the internal mammary chain. The mass is encasing and infiltrating the right third and fourth costal cartilages and costochondral junctions laterally. The internal thoracic vessels are encased bythe mass. There is infiltration and destruction of adjacent body of the sternum. Anteriorly there isinfiltration to the medial third of the right pectoralis major muscle. LUNGS AND AIRWAYS: Calcified pulmonary nodule (7 mm) in the right middle lobe. Noncalcified solid pulmonary nodule (4 mm; series 2image 73) in the right middle lobe, medial segment. Noncalcified solid pulmonary nodule (1 mm; image89) in the anteromedial basal segment of the left lower lobe. No additional pulmonary nodule or mass. No groundglass opacities or focal consolidation. No interstitial lung disease. Airways are normal.PLEURA: The pleural spaces are clear. HEART AND MEDIASTINUM: Multiple hypodense nodules measuring upto 6 mm in the right and left thyroid lobes. Mild diffuse thyroid gland enlargement. Calcified lymphnodes measuring up to 1.3 cm in the right lower paratracheal and subcarinal spaces of the mediastinum. There is a small calcified right hilar lymph node. No suspicious mediastinal, hilar or axillary lymphadenopathy. Mild left atrial enlargement. Calcification of the posterior leaflet of the mitral valve.. There is no pericardial effusion. There are moderate atherosclerotic calcifications in the coronary arteries. Coronary artery calcifications in the left main, proximal and mid LAD, LCx and RCA.The thoracic aorta and pulmonary arteries are unremarkable. Small sliding hiatal hernia. UPPER ABDOMEN: Moderate to severe hepatic steatosis without hepatomegaly. Punctate calcified granuloma (1 mm; ser ies 1 image 89) in segment 7 of the right hepatic lobe. Uncomplicated cholelithiasis. There are gallstones measuring up to 6 mm. No splenomegaly. Multiple 1 to 2 mm calcified granulomas in the spleen. BONES: Subcutaneous fluid attenuation lesion (2.2 cm x 2 cm) in the right posterior chest wall at level of T2 spinous process likely a sebaceous/epidermoid cyst. The visualized bony thorax is otherwise within normal limits. IMPRESSION: 1. Right anterior chest wall mass between the right third and fourth costal cartilages along the internal mammary chain. The mass is encasing and infiltrating the right third and fourth costal cartilages, adjacent costochondral junctions and body of the sternum medially. Anteriorly there is infiltration to the posterior surface of the medial end of right pectoralis major muscle. 2. Calcified pulmonary nodule in the right middle lobe and calcified mediastinal and right hilar lymph nodes, sequelae of remote granulomatous disease. 3. Indeterminate noncalcified solid pu lmonary nodule in the right middle lobe, medial segment. Pulmonary metastasis cannot be excluded. Recommend monitoring on follow-up imaging. 4. Mild left atrial enlargement. 5. Coronary artery disease.Moderate calcified plaques in the left main, proximal and mid LAD, RCA and LCX coronary arteries. 6. Moderate to severe hepatic steatosis without hepatomegaly. 7. Uncomplicated cholelithiasis. Signed:Blake Lan MDReport Verified Date/Time: 04/14/2021 11:13:10 Reading Location: [facility] Reading Room [address] [place] [address] [id number] 10:16:59 Test Item Value Reference Range Interpretation Comments POC-CREATININE 0.6 mg/dL 0.6-1.3 : TESTED AT [facility] ([facility]) (test [facility] code = 1859) A, [facility] 7 2227: Vocational Ed Instructor/Techni darnell ID = [id number] for AKIRA SCHMIDT POC-EGFR 95 mL/min/1.73M2 (Storwize) (test code = 1860)
[2021-08-22] MEDS ORDERED: ONDANSETRON 4 MG/2 ML VIAL ONE (16:15)
[2021-08-22] MEDS ORDERED: NA CHLORIDE 0.9% 1,000 ML ONE (16:15)
[2021-08-22 16:26] LABS: Absolute Lymphocytes (CBC) 0.6 K/uL (0.7-4.9); Hematocrit 36.6 % (36.0-45.0); Lymphocytes % 18.2 % (15.3-44.8); MPV 7.5 fL (7.6-11.3); RBC Red Blood Cell Count 4.41 M/uL (3.86-4.86)
--- NOTE | 2021-08-22 16:37 | RAD REPORT ---
EXAM DESCRIPTION: RAD - Chest Single View - 08/22/2021 4:22 pm CLINICAL HISTORY: COUGHhistory of breast cancer status post radiation therapy COMPARISON: CT chest 02/10/2021, two view chest 07/27/2017 TECHNIQUE: AP portable chest image was obtained 08/22/2021 4:22 pm . FINDINGS: Lungs show mild baseline fibrotic change. No acute infiltrate of the left lung field and n o mass lesion identified. There is no overall failure or volume overload pattern. No acute consolidat ions seen on the right. The patient has numerous mediastinal and hilar granulomatous calcifications. In the right upper lung field at the level of the aortic arch there is an 8 millimeter area of focal density that is probably summation of normal structures. No mass or nodule seen on the January 2021 CT study. Likelihood of masses felt to be low. This can be monitored with a follow-up chest film in 3 -4 months. Heart and vasculature are normal. No measurable pleural effusion and no pneumothorax. No acute bony a bnormality seen. No acute aortic findings suspected. IMPRESSION: No focal infiltrate and no acute cardiopulmonary finding seen. Ill-defined nodular 8 mm density upper right lung field is probably summation artifact rather than ma ss. This can be re-evaluated with chest film in 3-4 months.
[2021-08-22 16:43] LABS: Albumin 3.6 g/dL (3.4-5.0); Bilirubin Direct 0.1 mg/dL (0-0.2); Bilirubin Total 0.2 mg/dL (0.2-1.0); Potassium 3.4 mmol/L (3.5-5.1); Protein, Total 7.7 g/dL (6.4-8.2); Troponin High Sensitivity 8.5 pg/mL (<58.9)
--- NOTE | 2021-08-22 17:38 | ER ---
Nurse's Notes [facility] Name: Ernestine Krause Age: 85 yrs Sex: Female : 1935 Arrival Date: 08/22/2021 Time: 15:36 Bed 5 Private MD: Diagnosis: Coronavirus infection, unspecified Presentation: 08/22 15:39 Chief complaint: Patient states: my chest is really well i have coughed and coughed and tw2 coughed and i spit up today. i have diarrhea. and i am nauseous. finished radiation 08/11/2021 and i just feel short of breath. i tried calling my cancer dr but they are closed today. Coronavirus screen: At this time, the client does not indicate any symptoms associated with coronavirus-19. Ebola Screen: Patient denies travel to an Ebola-affected area in the 21 days before illness onset. Initial Sepsis Screen: Does the patient meet any 2 criteria? No. Patient's initial sepsis screen is negative. Does the patient have a suspected source of infection? No. Patient's initial sepsis screen is negative. Risk Assessment: Do you want to hurt yourself or someone else? Patient reports no desire to harm self or others. Onset of symptoms was August 22, 2021. 15:39 Method Of Arrival: Ambulatory tw2 15:39 Acuity: JOVON 3 tw2 Triage Assessment: 15:44 General: Appears in no apparent distress. Behavior is calm, cooperative, appropriate tw2 for age. Pain: Complains of pain in right breast and left breast. Historical: - Allergies: 15:43 PENICILLINS; tw2 15:43 Sulfa (Sulfonamide Antibiotics); tw2 15:43 Codeine; tw2 - Home Meds: 15:45 Metformin Oral [Active]; levothyroxine oral [Active]; tw2 - PMHx: 15:43 breast cancer; Hypertensive disorder; Hypothyroidism; tw2 15:45 Diabetes mellitus; tw2 - PSHx: 15:43 lymph nodes; right breast removed; hysterectomy; tw2 - Immunization history:: Client reports having NOT received the Covid vaccine. - Social history:: Smoking status: Patient denies any tobacco usage or history of. Screenin:43 Abuse screen: Denies threats or abuse. Denies injuries from another. Nutritional conde screening: No deficits noted. Tuberculosis screening: No symptoms or risk factors identified. Fall Risk None identified. Assessment: 16:06 General: Appears in no apparent distress. Behavior is calm, cooperative. Pain: conde Complains of pain in chest. Respiratory: Reports cough that is. EENT: Reports nasal congestion. 16:43 Cardiovascular: Reports chest pain, shortness of breath. GI: Reports nausea. conde 17:16 Reassessment: Patient and/or family updated on plan of care and expected duration. Pain ap3 level reassessed. Patient is alert, oriented x 3, equal unlabored respirations, skin warm/dry/pink. Vital Signs: 15:39 BP 151 / 71; Pulse 100; Resp 19; Temp 97.8(TE); Pulse Ox 97% on R/A; Weight 69.35 kg; tw2 17:17 BP 141 / 61; Pulse 89; Pulse Ox 98% on R/A; ap3 ED Course: 15:36 Patient arrived in ED. as 15:38 Indigo Cuellar [facility]NP [facility] 15:38 Zach Connors MD is Attending Physician. [facility] 15:43 Triage completed. tw2 15:44 Arm band placed on. tw2 16:01 Jennifer Jewell, RISHI is Primary Nurse. ap3 16:21 Initial lab(s) drawn, by ms, sent to lab. COVID swab sent to lab. Flu and/or RSV swab jw7 sent to lab. Inserted saline lock: 20 gauge in left antecubital area, using aseptic technique. Blood collected. 16:21 SARS-COV-2 RT PCR (Document "Date of Onset" if Symptomatic) Sent. jw7 16:22 Flu Sent. jw7 16:22 Basic Metabolic Panel Sent. jw7 16:22 CBC with Diff Sent. jw7 16:22 LFT's Sent. jw7 16:22 Troponin HS Sent. jw7 16:24 XRAY Chest (1 view) In Process Unspecified. EDMS 16:44 Patient has correct armband on for positive identification. Bed in low position. conde 16:44 No provider procedures requiring assistance completed. conde 17:51 IV discontinued, intact, Pressure dressing applied. conde Administered Medications: 16:36 Drug: NS 0.9% 1000 ml Route: IV; Rate: 1 bolus; Site: left antecubital; conde 16:36 Drug: Zofran (Ondansetron) 4 mg Route: IVP; Site: left antecubital; conde 16:36 Follow up: Response: No adverse reaction conde Medication: 16:44 VIS not applicable for this client. conde Outcome: 17:38 Discharge ordered by MD. cain 17:50 Discharged to home ambulatory. conde 17:50 Condition: good 17:50 Discharge instructions given to patient, Prescriptions given X 2. 17:51 Patient left the ED. conde Signatures: Dispatcher [employer] Kassy Zacarias Tara, RN RN tw2 Jennifer Jewell RN RN ap3 Mere Perrin RN RN Nicolette Freitas7 Indigo Cuellar FNP FNP 7
--- NOTE | 2021-08-22 17:39 | EDPHYS ---
Physician Documentation [facility] Name: Ernestine Krause Age: 85 yrs Sex: Female : 1935 Arrival Date: 08/22/2021 Time: 15:36 Bed 5 Private MD: UZIEL Physician Zach Connors HPI: 08/22 15:57 This 85 yrs old Female presents to ER via Ambulatory with complaints of Chest jh7 Congestion. 15:57 Onset: The symptoms/episode began/occurred 3 day(s) ago. Associated signs and symptoms: jh7 Pertinent positives: cough, vomiting, chest tightness, Pertinent negatives: chest pain, headache, nasal discharge. Patient reports chest congestion and cough since Wednesday. States that the cough has progressively gotten worse, and has become productive. Also reports that she began vomiting the past 2 days with diarrhea. States she actually feels better today, but wanted to ensure that everything was okay. Has a history of breast cancer and finished radiation on the .. Historical: - Allergies: 15:43 PENICILLINS; tw2 15:43 Sulfa (Sulfonamide Antibiotics); tw2 15:43 Codeine; tw2 - Home Meds: 15:45 Metformin Oral [Active]; levothyroxine oral [Active]; tw2 - PMHx: 15:43 breast cancer; Hypertensive disorder; Hypothyroidism; tw2 15:45 Diabetes mellitus; tw2 - PSHx: 15:43 lymph nodes; right breast removed; hysterectomy; tw2 - Immunization history:: Client reports having NOT received the Covid vaccine. - Social history:: Smoking status: Patient denies any tobacco usage or history of. ROS: 15:57 Constitutional: Negative for fever, chills, and weight loss. jh7 15:57 Eyes: Negative for injury, pain, redness, and discharge, ENT: Negative for injury, pain, and discharge, Cardiovascular: Negative for chest pain, palpitations, and edema, Back: Negative for injury and pain, MS/Extremity: Negative for injury and deformity, Skin: Negative for injury, rash, and discoloration, Neuro: Negative for headache, weakness, numbness, tingling, and seizure. 15:57 Respiratory: Positive for cough, with white sputum, chest tightness, Negative for shortness of breath, wheezing. 15:57 Abdomen/GI: Positive for nausea, vomiting, and diarrhea, Negative for abdominal pain. 15:57 All other systems are negative. Exam: 15:57 Constitutional: This is a well developed, well nourished patient who is awake, alert, jh7 and in no acute distress. ENT: Nares patent. No nasal discharge, no septal abnormalities noted. Oropharynx with no redness, swelling, or masses, exudates, or evidence of obstruction, uvula midline. Mucous membranes moist. Neck: Trachea midline, no thyromegaly or masses palpated, and no cervical lymphadenopathy. Supple, full range of motion without nuchal rigidity, or vertebral point tenderness. No Meningismus. Cardiovascular: Regular rate and rhythm with a normal S1 and S2. No gallops, murmurs, or rubs. Normal PMI, no JVD. No pulse deficits. Respiratory: Lungs have equal breath sounds bilaterally, clear to auscultation and percussion. No rales, rhonchi or wheezes noted. No increased work of breathing, no retractions or nasal flaring. Abdomen/GI: Soft, non-tender, with normal bowel sounds. No distension or tympany. No guarding or rebound. No evidence of tenderness throughout. Skin: Warm, dry with normal turgor. Normal color with no rashes, no lesions, and no evidence of cellulitis. Neuro: Awake and alert, GCS 15, oriented to person, place, time, and situation. Motor strength 5/5 in all extremities. Sensory grossly intact. Normal gait. 17:00 ECG was reviewed by the Attending Physician. [facility] Vital Signs: 15:39 BP 151 / 71; Pulse 100; Resp 19; Temp 97.8(TE); Pulse Ox 97% on R/A; Weight 69.35 kg; tw2 17:17 BP 141 / 61; Pulse 89; Pulse Ox 98% on R/A; ap3 MDM: 15:55 Patient medically screened. [facility] 17:30 Differential diagnosis: viral Infection, bacterial infection, URI, pneumonia. Data [facility] reviewed: vital signs, nurses notes, lab test result(s), EKG, radiologic studies, plain films. Data interpreted: Pulse oximetry: is 98 %. Interpretation: normal. Counseling: I had a detailed discussion with the patient and/or guardian regarding: the historical points, exam findings, and any diagnostic results supporting the discharge/admit diagnosis, to return to the emergency department if symptoms worsen or persist or if there are any questions or concerns that arise at home. ED course: Informed the patient that she is positive for COVID. She stated that she felt much better today, and asked if she could go home. Informed her of her nonacute findings on the chest x-ray. Her labs were unremarkable. Advised that she take prescribed medication as directed, and if her symptoms worsen, or she develops any new concerning symptoms, she should return to the ER for further eval.. 08/22 15:55 Order name: Basic Metabolic Panel; Complete Time: 16:54 [facility] 08/22 15:55 Order name: CBC with Diff; Complete Time: 16:36 [facility] 08/22 15:55 Order name: LFT's; Complete Time: 16:54 [facility] 08/22 15:55 Order name: Troponin HS; Complete Time: 16:54 [facility] 08/22 15:55 Order name: Flu; Complete Time: 17:00 [facility] 08/22 15:55 Order name: SARS-COV-2 RT PCR (Document "Date of Onset" if Symptomatic); Complete Time: [facility] 17:37 08/22 15:55 Order name: XRAY Chest (1 view); Complete Time: 16:54 [facility] 08/22 15:55 Order name: EKG; Complete Time: 15:56 [facility] 08/22 15:55 Order name: Cardiac monitoring; Complete Time: 16:37 [facility] 08/22 15:55 Order name: EKG - Nurse/Tech; Complete Time: 17:04 [facility] 08/22 15:55 Order name: IV Saline Lock; Complete Time: 16:22 [facility] 08/22 15:55 Order name: Labs collected and sent; Complete Time: 16:22 [facility] 08/22 15:55 Order name: O2 Per Protocol; Complete Time: 16:13 [facility] 08/22 15:55 Order name: O2 Sat Monitoring; Complete Time: 16:13 [facility] EC:00 Rate is 92 beats/min. Rhythm is regular. QRS [place] is Normal. CA interval is normal. QRS jh7 interval is normal. QT interval is normal. Clinical impression: No evidence of ischemia. Administered Medications: 16:36 Drug: NS 0.9% 1000 ml Route: IV; Rate: 1 bolus; Site: left antecubital; conde 16:36 Drug: Zofran (Ondansetron) 4 mg Route: IVP; Site: left antecubital; conde 16:36 Follow up: Response: No adverse reaction conde Disposition Summary: 08/22/21 17:38 Discharge Ordered Location: Home [facility] Problem: new [facility] Symptoms: have improved [facility] Condition: Stable [facility] Diagnosis - Coronavirus infection, unspecified [facility] Followup: [facility] - With: Private Physician - When: 2 - 3 days - Reason: Recheck today's complaints Discharge Instructions: - Discharge Summary Sheet [facility] - Cough, Adult [facility] - COVID-19 [facility] Forms: - Medication Reconciliation Form [facility] - Thank You Letter [facility] Prescriptions: - ProAir HFA 90 mcg/actuation Inhalation HFA aerosol inhaler - inhale 2 puff by INHALATION route every 4-6 hours; 1 Inhaler; Refills: 0, [facility] Product Selection Permitted - Tessalon Perles 100 mg Oral Capsule - take 1 capsule by ORAL route every 8 hours As needed; 15 capsule; Refills: 0, [facility] Product Selection Permitted Addendum: 08/29/2021 13:43 Co-signature as Attending Physician, Zach Connors MD I agree with the assessment and [facility] plan of care. Signatures: Dispatcher [employer] Zach Chacko MD MD cha Wise, Tara, RN RN tw2 Mere Perrin RN RN Indigo Valdivia, ORACLE R12 DEVELOPER [place] [id number]
[2021-08-22 18:00] VITALS: TEMP 97.8
[2021-08-22 18:01] VITALS: BP 141/61; O2SAT 98
--- NOTE | 2021-08-25 13:40 | EKG ---
Test Date: 2021-08-22 Test Time: 16:50:44 Needle Punch Machine Operator Helper: HERNAN MEASUREMENT RESULTS: Intervals: Rate: 92 DE: 184 QRSD: 80 QT: 362 QTc: 447 [place]: P: 53 DE: 184 QRS: 3 T: -2 INTERPRETIVE STATEMENTS: Normal sinus rhythm Anteroseptal infarct, age undetermined Abnormal ECG Compared to ECG 07/27/2017 13:22:20 Myocardial infarct finding now present Electronically Signed On 08-25-21 13:37:03 CDT by Edgard Berrios
== END 2021-08-22 17:51 | disposition home or self-care (01) ==
LOC: ER 15:33
DX: U07.1 COVID-19 (principal); I10 Essential (primary) hypertension; E03.9 Hypothyroidism, unspecified; E11.9 Type 2 diabetes mellitus without complications; Z85.3 Personal history of malignant neoplasm of breast; Z88.0 Allergy status to penicillin; Z88.2 Allergy status to sulfonamides; Z88.5 Allergy status to narcotic agent; Z90.11 Acquired absence of right breast and nipple
CPT/HCPCS: 93005; 85025; 80048; 36415; 80076; 84484; 87804 ×2; 71045; 96374; 99284; U0003; J7030; J2405

== ENCOUNTER 2021-11-12 06:12 | Day surgery (SDC) | payer OTHER ==
[2021-11-11 09:13] LABS: Absolute Lymphocytes (CBC) 0.8 K/uL (0.7-4.9); Hematocrit 36.4 % (36.0-45.0); Lymphocytes % 12.2 % (15.3-44.8); MCV 84.4 fL (80-100); MPV 7.5 fL (7.6-11.3); RBC Red Blood Cell Count 4.31 M/uL (3.86-4.86)
--- NOTE | 2021-11-11 09:18 | RAD REPORT ---
EXAM DESCRIPTION: Pamelat Pa And Lat (2 Views)11/11/2021 8:57 am CLINICAL HISTORY: Preop for gallbladder surgery. Breast cancer COMPARISON: August 2021 FINDINGS: 2.2 centimeter opacity overlies the right upper lobe. Additional smaller opacities overlie the right lung. Left lung appears clear. Heart is normal size IMPRESSION: Right lung opacities. These may represent infiltrate or mass. CT chest would be helpful for further evaluation
[2021-11-11 09:31] LABS: Albumin 3.8 g/dL (3.4-5.0); Bilirubin Direct 0.1 mg/dL (0-0.2); Bilirubin Total 0.3 mg/dL (0.2-1.0); Potassium 4.5 mmol/L (3.5-5.1); Protein, Total 7.7 g/dL (6.4-8.2)
[2021-11-12] MEDS ORDERED: CEFOXITIN SODIUM 1 GM/VIAL ONE (06:45)
[2021-11-12] MEDS ORDERED: NA CHLORIDE 0.9% 50 ML ONE (06:46)
[2021-11-12] MEDS ORDERED: NA CHLORIDE 0.9% 1,000 ML ONE (06:46)
[2021-11-12] MEDS ORDERED: LIDOCAINE 1% MPF 5 ML VIAL ONE (07:08)
[2021-11-12] MEDS ORDERED: FENTANYL CITR 100 MCG/2 ML ONE (07:08)
[2021-11-12] MEDS ORDERED: propofoL 200 MG/20 ML VIAL IV ONE (07:08)
[2021-11-12] MEDS ORDERED: ROCURONIUM 50 MG/5 ML VIAL IV ONE (07:08)
[2021-11-12] MEDS ORDERED: BUPIVACAINE 0.5% PF 10 ML VIAL ONE (07:14)
[2021-11-12] MEDS ORDERED: dexAMETHasone 10 MG/ML VIAL ONE (07:38)
[2021-11-12] MEDS ORDERED: ONDANSETRON 4 MG/2 ML VIAL ONE (07:38)
[2021-11-12] MEDS ORDERED: KETOROLAC 30 MG/ML INJ ONE (07:38)
[2021-11-12] MEDS ORDERED: EPHEDRINE SULF 50 MG/ML VIAL ONE (07:52)
[2021-11-12] MEDS ORDERED: NS 0.9% VIAL 10 ML ONE (07:52)
[2021-11-12] MEDS ORDERED: GLYCOPYRROLATE 0.2 MG/ML SYR ONE (08:26)
[2021-11-12] MEDS ORDERED: NEOSTIGMINE 1 MG/ML -10 ML VIAL ONE (08:26)
[2021-11-12] MEDS ORDERED: TRAMADOL 37.5mg/APAP 325mg PER TAB PO PRN (08:38)
--- NOTE | 2021-11-12 08:44 | P.OP ---
Date of Service: 11/12/21 Preop diagnosis: Chronic cholecystitis and cholelithiasis Postop diagnosis: Same Procedure performed: Laparoscopic cholecystectomy Surgeon: Jalen Forrester MD Repairer Hairspring: KM Kruse Estimated blood loss: Minimal Specimen: Gallbladder Findings: As above Anesthesia: General Complications: None Drains: None Fluids and blood products: Nonapplicable Disposition: Recovery room Operative note: Patient brought to the OR and placed in the supine position. General anesthesia begun. Patient prepped and draped in the usual sterile fashion. 15 blade used to make a 1 cm supraumbilical midline incision. Subcutaneous tissue divided. Fascia identified and divided. #1 Vicryl stay suture placed. Peritoneal cavity entered with sharp and blunt dissection. 12 mm trocar placed into the peritoneal cavity under direct vision. Pneumoperitoneum established. Then, 3 5 mm trochars placed. 1 trocar placed in the epigastric region just to the right of midline and 2 in the right subcostal region. Laparoscopy revealed chronic inflammation of the gallbladder. The fundus was retracted superiorly; however, the infundibulum was difficult to visualize because the liver was covering this area. An extra 5 mm trocar was placed to retract the liver to better visualize the infundibulum and the cystic duct and cystic artery. Subsequently, blunt dissection was used to define the cystic duct and cystic artery clearly. Clips placed both structures divided. Cautery used to remove the gallbladder from the liver bed. Bleeding on the liver bed controlled with cautery. Gallbladder retrieved through the umbilicus via Endo Catch bag. Right upper quadrant irrigated. Effluent was clear with no evidence of bleeding or bile leakage appreciated. All trochars removed under direct vision. Stay sutures tied to each other to reapproximate the fascial defect. Subcutaneous wounds irrigated and bleeding controlled with cautery. 3- 0 chromic used to approximate subcutaneous tissue in close skin. Sterile dressing applied. Patient awakened and taken to recovery room in good general condition. CC: Dr. Ignacio's office
[2021-11-12] MEDS ORDERED: Mastisol Adhesive Liq ONE (08:46)
[2021-11-12] MEDS ORDERED: PROMETHAZINE INJ 25 MG/ML AMP ONE (09:04)
[2021-11-12 09:56] VITALS: BP 126/49; TEMP 97; O2SAT 94
== END 2021-11-12 10:21 | disposition home or self-care (01) ==
LOC: OR 06:12
PROVIDERS: ATTEND Surgery
PROC: 0FT44ZZ Resection of Gallbladder, Percutaneous Endoscopic Approach (ICD-10-PCS; principal; 2021-11-12 07:30)
DX: K80.10 Calculus of gallbladder with chronic cholecystitis without obstruction (principal); Z88.0 Allergy status to penicillin; Z88.6 Allergy status to analgesic agent; Z88.2 Allergy status to sulfonamides; I10 Essential (primary) hypertension; E11.9 Type 2 diabetes mellitus without complications; Z85.3 Personal history of malignant neoplasm of breast
CPT/HCPCS: 85025; 80048; 36415; 82150; 82947 ×2; 80076; 88304; 71046; 47562; J2704; J2710; J2550; J3010; J1100; J7030; J0694; J2405; A4216; J2001

== ENCOUNTER 2023-02-10 06:40 | Day surgery (SDC) | payer OTHER ==
[2023-02-09 13:05] LABS: Absolute Lymphocytes (CBC) 1.3 K/uL (0.7-4.9); Hematocrit 35.7 % (36.0-45.0); Lymphocytes % 14.8 % (15.3-44.8); MCV 86.1 fL (80-100); MPV 7.6 fL (7.6-11.3); Platelets 321 thou/uL (152-406); RBC Red Blood Cell Count 4.15 M/uL (3.86-4.86)
--- NOTE | 2023-02-09 13:08 | RAD REPORT ---
EXAM DESCRIPTION: RAD - Chest Single View - 02/09/2023 12:56 pm CLINICAL HISTORY: preop Chest pain. COMPARISON: Chest Pa And Lat (2 Views) dated 11/11/2021; Chest Single View dated 08/22/2021; Chest Pa And Lat (2 Views) dated 07/27/2017; Ct Skull/Thigh dated 07/23/2022; Chest Abdomen Pelvis W Cont dated 04/27/2022; Chest Abdomen Pelvis W Cont dated 01/22/2022 FINDINGS: Portable technique limits examination quality. Multiple varying size nodules are present in both lungs which appear progressive since the 11/11/2021 study. The heart is upper limit normal in size. No displaced fractures.
[2023-02-09 13:17] LABS: Potassium 4.4 mEq/L (3.5-5.1)
[2023-02-10] MEDS ORDERED: NA CHLORIDE 0.9% 1,000 ML ONE (07:06)
[2023-02-10] MEDS ORDERED: CEFAZOLIN SODIUM 1 GM/VIAL ONE (07:06)
[2023-02-10] MEDS ORDERED: ONDANSETRON 4 MG/2 ML VIAL ONE (07:15)
[2023-02-10] MEDS ORDERED: LIDOCAINE 2% MPF 5 ML VIAL ONE (07:15)
[2023-02-10] MEDS ORDERED: FENTANYL CITR 100 MCG/2 ML ONE (07:15)
[2023-02-10] MEDS ORDERED: BENZONATATE 100 MG CAP PO SCH (07:15)
[2023-02-10] MEDS ORDERED: propofoL 200 MG/20 ML VIAL IV ONE (07:15)
[2023-02-10] MEDS: CEFAZOLIN SODIUM 2 GM/VIAL ONE ×2 (07:27→08:20)
[2023-02-10] MEDS ORDERED: EPHEDRINE SULF 50 MG/ML VIAL ONE (08:58)
[2023-02-10] MEDS ORDERED: TRAMADOL 37.5mg/APAP 325mg PER TAB PO PRN (09:09)
[2023-02-10 09:42] VITALS: O2SAT 97
--- NOTE | 2023-02-10 09:58 | P.OP ---
Date of Service: 02/10/23 Preop diagnosis: Infected sebaceous cyst on the back Postop diagnosis: Same Procedure performed: Wide excision infected sebaceous cyst 8 x 4 cm with layered closure Surgeon: Jalen Forrester MD Last Pattern Grader: None Estimated blood loss: Minimal Specimen: Pus and cyst Findings: As above Anesthesia: General Complications: None Drains: Quarter-inch [place] Fluids and blood products: Nonapplicable Disposition: Recovery room Operative note: Patient brought to the OR placed in supine position. General anesthesia begun. Patient placed in the left lateral position. Patient prepped and draped in usual sterile fashion. Marcaine 0.5% right locally. 15 blade used to make a 8 x 4 cm incision to excise this entire infected sebaceous cyst. Dissection proceeded down to the subcutaneous tissue just anterior to the muscle. Entire cyst excised and sent to pathology. Cultures done. Wound irrigated and bleeding controlled cautery. Flaps created. 0 chromic used to reapproximate subcutaneous tissue. 2-0 nylon used to loosely close the skin. Sterile dressing applied. Patient awakened and taken to recovery room in good general condition. CC: Dr. Jarrell' office
[2023-02-10] MEDS ORDERED: ACETAMINOPHEN 500 MG TAB ONE (10:08)
[2023-02-10 10:58] VITALS: BP 135/53; TEMP 97
== END 2023-02-10 10:40 | disposition home or self-care (01) ==
LOC: OR 06:40
PROVIDERS: ATTEND Surgery
PROC: 0JB70ZZ Excision of Back Subcutaneous Tissue and Fascia, Open Approach (ICD-10-PCS; principal; 2023-02-10 08:00)
DX: L72.3 Sebaceous cyst (principal); L02.212 Cutaneous abscess of back [any part, except buttock and flank]; E11.9 Type 2 diabetes mellitus without complications; I10 Essential (primary) hypertension; M19.90 Unspecified osteoarthritis, unspecified site; Z85.3 Personal history of malignant neoplasm of breast; Z85.118 Personal history of other malignant neoplasm of bronchus and lung; Z88.0 Allergy status to penicillin; Z88.2 Allergy status to sulfonamides; Z88.5 Allergy status to narcotic agent
CPT/HCPCS: 85025; 80048; 36415; 82947 ×2; 88304; 71045; 11406; J2704; J2001; J3010; J2405; J7030; J0690